=== PATIENT | female | born 1970 | race Caucasian/White ===

== ENCOUNTER 2016-10-22 13:14 | Inpatient (IN) | payer BC ==
[2016-10-22] MEDS ORDERED: NS 0.9% 1000 ML* 1,000 ML IV ONE ×2 (14:58→16:35)
[2016-10-22] MEDS ORDERED: Ketorolac INJ* 30 MG/ML 1 ML VIAL IV ONE (14:58)
[2016-10-22] MEDS ORDERED: Ondansetron INJ* 2 MG/ML VIAL IV ONE ×2 (14:58→18:19)
[2016-10-22 15:29] LABS: Hematocrit 44 % (35-47); Hemoglobin 15.2 g/dl (12.0-16.0); Mean Corpuscular HGB Conc 34 g/dl (31-36); Mean Corpuscular Hemoglobin 30 pg (27-31); Mean Corpuscular Volume 87 fL (80-97); Mean Platelet Volume 9 um3 (7.4-10.4); Red Blood Count 5.12 10^6/ul (4.0-5.4); Red Cell Distribution Width 12 % (10.5-15); White Blood Count 7.8 10^3/ul (3.5-10.8)
[2016-10-22 16:00] LABS: ALT 22 U/L (7-52); AST 18 U/L (13-39); Albumin 4.4 g/dL (3.2-5.2); Alkaline Phosphatase 51 U/L (34-104); Amylase 29 U/L (29-103); Anion Gap 11 mmol/L (2-11); BUN/Creatinine Ratio 14.1 (8-20); Blood Urea Nitrogen 11 mg/dL (6-24); C Reactive Protein < 1.00 mg/L (< 5.00); CO2 Carbon Dioxide 26 mmol/L (22-32); Calcium 9.8 mg/dL (8.6-10.3); Chloride 103 mmol/L (101-111); EGFR African American 101.4 (>60); EGFR Non-African American 78.8 (>60); Globulin 2.8 g/dL (2-4); Glucose 104 mg/dL (70-100); Lipase 17 U/L (11.0-82.0); Potassium 3.5 mmol/L (3.5-5.0); Sodium 140 mmol/L (133-145); Total Protein 7.2 g/dL (6.4-8.9)
[2016-10-22] MEDS ORDERED: HYDROmorphone* 1 MG/ML 1 ML CARPUJECT IV SLOW PU ONE ×2 (17:56→21:42)
--- NOTE | 2016-10-22 18:40 | ED ---
Abdominal Pain/Female - HPI Summary HPI Summary: In the middle of a bout of cyclic vomiting---has usual mid abd pain, has been well managed with Nortriptylline aqnd when sx seem to been earlier this week she increased her nortrip. - History of Current Complaint Chief Complaint: EDAbdPain Stated Complaint: VOMITING/ABD PAIN Time Seen by Provider: 10/22/16 14:49 Hx Obtained From: Patient Hx Last Menstrual Period: 1 week ago ?: No Onset/Duration: Gradual Onset, Lasting Days, Worse Since - past 2 days, Other - Chronic abdomen pain with patient reported "Cyclic vomiting syndrome" Timing: Constant Severity Initially: Moderate Severity Currently: Moderate Pain Intensity: 4 Pain Scale Used: 0-10 Numeric Location: Other - mid upper abdomen Radiates: No Aggravating Factor(s): Nothing Alleviating Factor(s): Nothing Associated Signs and Symptoms: Positive: Decreased Appetite, Nausea, Vomiting Allergies/Adverse Reactions: Allergies Allergy/AdvReac Type Severity Reaction Status Date / Time No Known Allergies Allergy Verified 04/29/15 17:45 Home Medications: Home Medications Bisoprolol TAB* [Zebeta TAB*] 5 mg PO DAILY 10/22/16 [History Confirmed 10/22/16 ] Levothyroxine TAB* [Synthroid TAB*] 150 mcg PO 0800 10/22/16 [History Confirmed 10/22/16] Nortriptyline CAP* [Pamelor CAP*] 20 mg PO BEDTIME 10/22/16 [History Confirmed 10/22/16] Pantoprazole TAB (NF) [Protonix TAB (NF)] 40 mg PO DAILY 10/22/16 [History Confirmed 10/22/16] Simvastatin TAB(NF) [Zocor(NF)] 40 mg PO 1700 10/22/16 [History Confirmed ] Triamterene/HCTZ 37.5-25 MG* [Dyazide CAP*] 1 cap PO DAILY 10/22/16 [History Confirmed 10/22/16] PMH/Surg Hx/FS Hx/Imm Hx Previously Healthy: No Endocrine/Hematology History: Reports: Hx Thyroid Disease Cardiovascular History: Reports: Hx Hypercholesterolemia, Hx Hypertension GI History: Reports: Hx Gastroesophageal Reflux Disease, Other GI Disorders - "cyclic vomiting" - Cancer History Hx Hematologic Symptoms: No Hx Chemotherapy: No Hx Radiation Therapy: No Hx Palliative Cancer Treatment: No - Surgical History Hx Anesthesia Reactions: No - Immunization History Hx Pertussis Vaccination: No Immunizations Up to Date: No Infectious Disease History: No Infectious Disease History: Denies: Traveled Outside the [place] in Last 30 Days - Family History Known Family History: Positive: None - Social History Occupation: Employed Full-time Lives: With Family Alcohol Use: Occasionally Alcohol Amount: socially Hx Substance Use: No Substance Use Type: Reports: None Smoking Status (MU): Never Smoked Tobacco Review of Systems Constitutional: Negative Eyes: Negative ENT: Negative Cardiovascular: Negative Respiratory: Negative Gastrointestinal: Other Positive: Abdominal Pain, Vomiting, Nausea Genitourinary: Negative Musculoskeletal: Negative Skin: Negative Neurological: Negative Psychological: Normal All Other Systems Reviewed And Are Negative: Yes Physical Exam Triage Information Reviewed: Yes Vital Signs On Initial Exam: Initial Vitals Temp Pulse Resp BP Pulse Ox 96.6 F 70 18 121/68 99 10/22/16 13:47 10/22/16 13:47 10/22/16 13:47 10/22/16 13:47 10/22/16 13:47 Vital Signs Reviewed: Yes Appearance: Positive: Ill-Appearing, Pain Distress, Obese Skin: Positive: Warm, Skin Color Reflects Adequate Perfusion, Dry Head/Face: Positive: Normal Head/Face Inspection Eyes: Positive: Normal, EOMI, KOBE ENT: Positive: Normal ENT inspection, Hearing grossly normal. Negative: Nasal congestion, Nasal drainage, Tonsillar swelling, Tonsillar exudate, Trismus, Muffled/hoarse voice, Dental tenderness Neck: Positive: Supple, Nontender Respiratory/Lung Sounds: Positive: Clear to Auscultation, Breath Sounds Present , Decreased Breath Sounds Cardiovascular: Positive: Normal, RRR, Pulses are Symmetrical in both Upper and Lower Extremities Abdomen Description: Positive: No Organomegaly, Soft, Other: - mid upper abdomen pain Bowel Sounds: Positive: Present Musculoskeletal: Positive: Normal, Strength/ROM Intact Neurological: Positive: Normal, Sensory/Motor Intact, Alert, Oriented to Person Place, Time Psychiatric: Positive: Normal, Affect/Mood Appropriate AVPU Assessment: Alert - Sheri Coma Scale Best Eye Response: 4 - Spontaneous Best Motor Response: 6 - Obeys Commands Best Verbal Response: 5 - Oriented Coma Scale Total: 15 Diagnostics - Vital Signs Vital Signs Temp Pulse Resp BP Pulse Ox 10/22/16 18:10 16 10/22/16 17:03 69 15 108/60 98 10/22/16 17:00 71 18 98 10/22/16 16:30 66 13 115/54 100 10/22/16 16:00 70 19 112/52 99 10/22/16 15:49 98.7 F 72 14 100/48 98 10/22/16 15:30 77 18 100/68 100 10/22/16 15:26 69 95 10/22/16 15:23 104/83 10/22/16 13:47 96.6 F 70 18 121/68 99 - Laboratory Lab Results: Lab Results 10/22/16 10/22/16 10/22/16 Range/Units 15:15 15:15 15:15 WBC 7.8 (3.5-10.8) 10^3/ul RBC 5.12 (4.0-5.4) 10^6/ul Hgb 15.2 (12.0-16.0) g/dl Hct 44 (35-47) % MCV 87 (80-97) fL MCH 30 (27-31) pg MCHC 34 (31-36) g/dl RDW 12 (10.5-15) % Plt Count 301 (150-450) 10^3/ul MPV 9 (7.4-10.4) um3 Neut % (Auto) 70.1 (38-83) % Lymph % (Auto) 16.4 L (25-47) % [place] % (Auto) 8.3 (1-9) % Eos % (Auto) 4.0 (0-6) % Baso % (Auto) 1.2 (0-2) % Absolute Neuts (auto) 5.4 (1.5-7.7) 10^3/ul Absolute Lymphs (auto) 1.3 (1.0-4.8) 10^3/ul Absolute Monos (auto) 0.6 (0-0.8) 10^3/ul Absolute Eos (auto) 0.3 (0-0.6) 10^3/ul Absolute Basos (auto) 0.1 (0-0.2) 10^3/ul Absolute Nucleated RBC 0 10^3/ul Nucleated RBC % 0.1 Sodium 140 (133-145) mmol/L Potassium 3.5 (3.5-5.0) mmol/L Chloride 103 (101-111) mmol/L Carbon Dioxide 26 (22-32) mmol/L Anion Gap 11 (2-11) mmol/L BUN 11 (6-24) mg/dL Creatinine 0.78 (0.51-0.95) mg/dL Est GFR ( Amer) 101.4 (>60) Est GFR (Non-Af Amer) 78.8 (>60) BUN/Creatinine Ratio 14.1 (8-20) Glucose 104 H (70-100) mg/dL Lactic Acid 1.2 (0.5-2.0) mmol/L Calcium 9.8 (8.6-10.3) mg/dL Total Bilirubin 0.60 (0.2-1.0) mg/dL AST 18 (13-39) U/L ALT 22 (7-52) U/L Alkaline Phosphatase 51 (34-104) U/L C-Reactive Protein < 1.00 (< 5.00) mg/L Total Protein 7.2 (6.4-8.9) g/dL Albumin 4.4 (3.2-5.2) g/dL Globulin 2.8 (2-4) g/dL Albumin/Globulin Ratio 1.6 (1-3) Amylase 29 (29-103) U/L Lipase 17 (11.0-82.0) U/L Beta HCG, Quant 0.72 mIU/mL Result Diagrams: 10/22/16 15:15 10/22/16 15:15 Lab Statement: Any lab studies that have been ordered have been reviewed, and results considered in the medical decision making process. - CT No standard instances CT Interpretation: Positive (See Comments) - cystic lesion jejunum CT Interpretation Completed By: Radiologist Re-Evaluation - Re-Evaluation First Eval Change: Unchanged - 3 doses of pain med and antiemetic with minimal relief of abd pain--nausea and heeves continues Abdominal Pain Fem Course/Dx - Course Course Of Treatment: Continue NPO, Admit to hospital - Diagnoses Differential Diagnosis: Positive: Bowel Obstruction, Diverticulitis, Irritable Bowel Syndrome, Other - cystic lesion small intestine Provider Diagnoses: Intractable nausea and vomiting Is Visit Related: No Discharge - Discharge Plan Condition: Fair Disposition: ADMITTED TO [facility]
[2016-10-22] MEDS ORDERED: Iohexol 300* (CONTRAST) 10 ML SDV IV ONE (20:00)
[2016-10-22 20:08] LABS: Urine Bacteria Absent (Absent); Urine Bilirubin Negative (Negative); Urine Glucose Negative (Negative); Urine Nitrite Negative (Negative)
--- NOTE | 2016-10-22 20:52 | RAD ---
INDICATION: Abdominal pain COMPARISON: None TECHNIQUE: Axial source images were obtained from the hemidiaphragms to the symphysis pubis following administration of oral and intravenous contrast. 139 mL Omnipaque 300 was utilized. Coronal and sagittal reconstructed images were acquired. Lung bases: The lung bases are clear. Liver: The liver is normal in size. There are no masses. There is no ductal dilatation. Gallbladder: Cholecystectomy. Spleen: The spleen is normal in size. There are no masses. Pancreas: There is no focal pancreatic mass or ductal dilatation. Adrenal glands: There is no evidence of adrenal mass. Kidneys: The kidneys are normal in size and position. There are prompt nephrograms and there is prompt excretion bilaterally. There are no renal parenchymal masses. There is no evidence of nephrolithiasis. Adenopathy: There is no evidence of adenopathy by size criteria. Fluid collections: There are no free or localized fluid collections. Vessels:There are no significant atherosclerotic changes involving the aorta. There is no focal aneurysm. The iliac vessels are normal in caliber. The IVC appears normal. GI tract: The GE junction is patulous. The stomach is unremarkable. On axial reference image 34/106 is a 3, significantly enhancing cystic lesion appearing to arise from the jejunum. This represents a nonspecific finding. Differential considerations would include but not be limited to duplication cysts, cystic degeneration of solid gastrointestinal tumors, gastric intestinal stromal tumors (GIST), or lymphangiomas. The remainder the the small bowel is unremarkable. The colon appears normal. The appendix is visualized and is normal. Pelvic organs: The uterus and adnexa appear normal. There are multiple small ovarian cysts Bladder: There are no bladder masses. Abdominal and pelvic soft tissues: The extraperitoneal abdominal and pelvic soft tissues appear normal.. Osseous structures: There are no acute osseous findings. Other: None IMPRESSION: NONSPECIFIC CYSTIC LESION OF THE SMALL BOWEL (SEE ABOVE). THIS MAY REPRESENT AN INCIDENTAL FINDING OR MAY ACCOUNT FOR THE PATIENT'S SYMPTOMS.
[2016-10-22] MEDS ORDERED: PROCHLORPERAZINE INJ 5 MG/ML 2 ML VIAL IV ONE (21:38)
[2016-10-22] MEDS ORDERED: NS 0.9% 1000 ML* 1,000 ML IV SCH ×2 (21:45→22:15)
[2016-10-22] MEDS ORDERED: Ondansetron INJ* 2 MG/ML VIAL IV PRN (22:12)
[2016-10-22] MEDS ORDERED: PROCHLORPERAZINE INJ 5 MG/ML 2 ML VIAL IV PRN (22:12)
[2016-10-22] MEDS ORDERED: Acetaminophen TAB* 325 MG PO PRN (22:13)
[2016-10-22] MEDS ORDERED: Morphine INJ* 4 MG/ML 1 ML CARPUJECT IV PRN (22:37)
[2016-10-22] MEDS ORDERED: oxyCODONE/Acetamin 5/325 MG* TAB PO PRN ×2 (22:37)
[2016-10-22] MEDS ORDERED: LORazepam INJ* 2 MG/ML 1 ML VIAL IV PUSH PRN (22:38)
[2016-10-22] MEDS ORDERED: Nortriptyline CAP* 10 MG PO SCH (23:00)
[2016-10-22] MEDS ORDERED: Heparin VIAL(*) 5000 UNITS/ML VIAL (FIVE THOUSAND) SUBCUT SCH (23:00)
[2016-10-23] MEDS ORDERED: Heparin DRIP 25,000 UNITS(*) 25,000 UNITS/500 ML BAG IV SCH (01:30)
--- NOTE | 2016-10-23 01:36 | PN ---
Progress Note - Progress Note Date of Service: 10/23/16 Note: [facility] Nursing notified of irregular HR in the high 60s/low 70s. Asymptomatic. No HX AFIB. ECG confirms rate controlled AFIB. Upon arrival, Mrs Ta is a 46YO female admitted for abdominal pain & intractable N/V and finding of cystic small bowel lesion, is asymptomatic and confirms a negative HX for AFIB. Denies chest pain, SOB, palpitations, weakness , light-headedness, & change in speech. lungs: clear, unlabored CV: IR/IR, normal S1S2 abd: SNTND ext: W&D ECG: rate controlled AFIB assessment: plan new onset rate controlled AFIB : has received heparin SQ for DVTp : start no initial bolus heparin GTT : continue bisoprolol : consider cardiology consult in AM, if not spontaneously converted : supplemental oxygen : [id number] of 2 indicates benefit from long-term anticoagulation : supportive care
--- NOTE | 2016-10-23 01:49 | HP ---
CC: Dr. Maria * HISTORY AND PHYSICAL: DATE OF ADMISSION: 10/22/16 PROVIDER: Stevo Munson NP ATTENDING PHYSICIAN: Dr. Anshul Aguila *(as dictated by Stevo Munson NP) CONSULTING PHYSICIAN: Dr. Robin Leal, Surgery. PRIMARY CARE PROVIDER: Elodia Maria MD CHIEF COMPLAINT: Abdominal pain and intractable nausea and vomiting. HISTORY OF PRESENT ILLNESS: This is a 46-year-old female with a past medical history significant for cyclic vomiting syndrome who presents today with persistent vomiting and abdominal pain. The patient is a very good historian. She reports that this has been a recurring issue for her for quite a few years. At one point, she states that it was thought to be her gallbladder. She had a gallbladder out in May 2014. After gallbladder removal, the patient states that her symptoms got somewhat better, then they worsened again. She says that she has had endoscopies, CAT scans, HIDA scans, ultrasounds with no significant findings to explain her symptoms. Most recently in February or March of this year, her primary care provider saw her after another particularly bad episode and diagnosed her with what was thought to be cyclic vomiting syndrome. She was started on nortriptyline and she states that she has done well with this and has had less flare-ups since that time. Last , the patient states that she started having some nausea and vomiting, which improved Wednesday and then progressively improved over the course of the weekend. She noted only mild nausea, but she was able to tolerate this; however, her symptoms worsened again on Wednesday and she has missed multiple days of work this week secondary to nausea and vomiting. She notes that she is the most nauseous and vomits every morning and then starts to feel a little bit better. She notes that by mid and late afternoon, she feels pretty good and then she wakes up the next morning and feels sick again. By this morning, on morning, she states that she woke up and felt really well today, was hoping to go to work. She ate some eggs this morning and then had severe vomiting episode, followed by abdominal pain. The pain began to worsen around noon and she came into the ER for further evaluation and management. She can identify no aggravating factors, but notes this cyclic pattern of nausea, vomiting every morning. She has been treating her symptoms with nortriptyline increased her dose to 30 and 40 mg. She also takes p.r.n. Zofran as needed. She reports associated decreased p.o. intake as well as low-grade fevers. She denies any chest pain, trouble breathing. She denies any diarrhea, although she does state that she has some lose stools last week. She denies any dysuria, hematuria, or other flu-like symptoms. Here in the ER, the patient's lab work is mostly unremarkable. A CT of the abdomen and pelvis was done with contrast. The CT notes a significantly enhancing cystic lesion that appears to arise from the jejunum. This represents a nonspecific finding. It may also represent duplication cyst, cystic degeneration of solid gastrointestinal tumors, gastric intestinal stromal tumors, or lymphangiomas. Surgery was consulted in the ED by the provider and they agreed to follow with the patient tomorrow as a consult. PAST MEDICAL HISTORY: 1. Cyclic vomiting syndrome. 2. Hypothyroidism. 3. Hypertension. 4. Hyperlipidemia. 5. GERD. 6. 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 HOME MEDICATIONS: 1. Levothyroxine 150 mcg daily. 2. Nortriptyline 20 mg q.h.s. 3. Pantoprazole 40 mg daily. 4. Bisoprolol 5 mg daily. 5. Simvastatin 20 mg daily. 6. Triamterene - hydrochlorothiazide 37.5 - 25 one tab daily. ALLERGIES: No known drug allergies. FAMILY HISTORY: She reports her mother has had a history of CVA. Father had history of heart surgery as well as myasthenia gravis and thrombocytopenia. He also carries a history of prostate cancer. SOCIAL HISTORY: The patient denies any smoking history. She reports occasional social drinking. She denies any history of illicit drug use including marijuana use. 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 She is . Her father, Theodore Briseno, is her surrogate decision maker. Her secondary surrogate decision maker is her daughter, Fifi Ta, who lives in [place], [place]. REVIEW OF SYSTEMS: A 14-point review of systems was completed. All pertinent positives and negatives are included in the HPI. PHYSICAL EXAMINATION GENERAL: This is a well-developed, well-nourished female patient, who is lying in the ED stretcher. She appears fatigued, but no apparent distress. VITAL SIGNS: Temperature 98.7, heart rate 72, respiratory rate 18, blood pressure 100/52, and O2 saturation is 97% on room air. Pain is rated at a 4/10. HEENT: Head is atraumatic, normocephalic. Face is symmetrical. Pupils are equal, round, and reactive to light. Extraocular movements are intact. Sclerae anicteric. Oral mucosa appears somewhat dry. There was no oropharyngeal exudate or erythema. NECK: Supple. No lymphadenopathy appreciated. No JVD noted. LUNGS: Clear to auscultation bilaterally. CARDIAC: S1, S2 heart sounds. Regular rate and rhythm. No murmurs, rubs, or gallops. There is trace peripheral edema. The patient has 2+ distal pulses. They are symmetric and equal. ABDOMEN: Soft. There is tenderness with palpation to the left upper quadrant and left lower quadrant. Bowel sounds are present times all 4 quadrants. No hepatosplenomegaly is noted. MUSCULOSKELETAL: No clubbing or cyanosis. The patient has full range of motion. SKIN: Limited assessment, but appears warm and dry. NEURO: Cranial nerves II through XII are grossly intact. The patient moves all extremities. Sensation is intact to light touch in the lower extremities. PSYCH: She is alert and oriented x3. Affect is appropriate. LABORATORY DATA AND DIAGNOSTIC STUDIES: CBC: WBC 7.8, hemoglobin 15.2, hematocrit 44, platelet count 301. CMP: Sodium 140, potassium 3.5, chloride 103, carbon dioxide 26, BUN 11, creatinine 0.78, glucose 104, lactic acid 1.2, calcium 9.8, total bilirubin 0.6, AST 18, ALT 22, alk phos 51, CRP less than 1, albumin 4.4, amylase 29, lipase 17, beta hCG negative. Urinalysis shows trace ketones. No bacteria. 3+ leukocyte esterase. CT of the abdomen and pelvis as per above. There are no old medical records for review. ASSESSMENT AND PLAN: This is a 46-year-old female who presents today with concern for intractable nausea, vomiting, and abdominal pain and has an incidental finding of cystic lesion on her CT of the abdomen and pelvis. She will be admitted for further evaluation and management as well as a surgical consult. Plan is as follows. 1. Intractable nausea and vomiting. Continue with supportive care and p.r.n. antiemetics. The patient reports that she has improvement in her nausea symptoms at this time. We will continue with p.r.n. Zofran and Compazine. I have also added on p.r.n. lorazepam if needed. We will resume the patient's nortriptyline and maintain her on clear liquid diet. 2. Abdominal pain. I suspect this may be secondary to the patient's nausea and vomiting. The patient reports some improvement with the pain following pain medications, but this also exacerbated her nausea and vomiting. I will switch her to morphine and also offer Percocet if she needs it. At this time, she is declining any further pain medications, but is aware of p.r.n. medications available to her. The patient does have a cystic lesion on her CT scan and we appreciate surgical input that will happen tomorrow. Additionally, I have requested records from her PCP and Dr. Castaneda with [facility]. We will repeat labs tomorrow and I have ordered a repeat CRP in the event the patient has a new infectious etiology forming and may have not yet been captured on the CT scan. 3. Hypothyroidism. Continue home levothyroxine. 4. History of reflux. Continue pantoprazole. 5. History of hyperlipidemia. Hold simvastatin while the patient is not taking p.o. Resume once taking p.o. 6. Hypertension. The patient is currently somewhat hypotensive most likely secondary to hypovolemia as well as pain medications. I will hold her bisoprolol and thiazide. We do not want to further dehydrate the patient when she is taking in little p.o. and with active vomiting. 7. FEN. The patient is ordered clear liquids and maintenance IV fluids. 8. DVT prophylaxis. The patient is ordered subcu heparin. 9. Code status. The patient is a full code. TIME SPENT: Time spent on this admission was approximately 60 minutes, more than half the time was spent [id number] with the patient obtaining history and physical, performing the physical examination, and reviewing the plan of care. Plan of care was also reviewed with my attending, Dr. Aguila, who is in agreement. STEVO MUNSON, PAYAM [id number]/[facility] #: [id number] BONITA
[2016-10-23] MEDS ORDERED: Heparin VIAL(*) 5000 UNITS/ML VIAL (FIVE THOUSAND) IV SCH ×2 (02:00→03:00)
[2016-10-23 02:30] LABS: Hematocrit 40 % (35-47); Hemoglobin 13.5 g/dl (12.0-16.0); Mean Corpuscular HGB Conc 33 g/dl (31-36); Mean Corpuscular Hemoglobin 29 pg (27-31); Mean Corpuscular Volume 88 fL (80-97); Mean Platelet Volume 9 um3 (7.4-10.4); Red Cell Distribution Width 13 % (10.5-15)
[2016-10-23] MEDS ORDERED: Heparin DRIP 25,000 UNITS(*) 25,000 UNITS/500 ML BAG IVPB SCH (02:30)
[2016-10-23] MEDS ORDERED: Levothyroxine TAB* 150 MCG TAB PO SCH (06:00)
[2016-10-23] MEDS ORDERED: Pantoprazole IV* 40 MG IV SCH (09:00)
[2016-10-23 09:38] VITALS: BP 102/63
[2016-10-23] MEDS ORDERED: Bisoprolol TAB* 5 MG PO SCH (10:00)
[2016-10-23 10:06] LABS: Hematocrit 40 % (35-47); Hemoglobin 13.6 g/dl (12.0-16.0); Mean Corpuscular HGB Conc 34 g/dl (31-36); Mean Corpuscular Hemoglobin 30 pg (27-31); Mean Corpuscular Volume 88 fL (80-97); Mean Platelet Volume 9 um3 (7.4-10.4); Red Blood Count 4.59 10^6/ul (4.0-5.4); Red Cell Distribution Width 13 % (10.5-15)
[2016-10-23 10:08] LABS: Comments Flag Yes
[2016-10-23 10:09] LABS: Add Diff/Slide Review? Slide Review Added
--- NOTE | 2016-10-23 11:14 | CONSULT ---
Consult Consult: Surgical consult dictated: Imp/Plan: Cyclic vomiting syndrome. Intermittent epigastric abdominal pain associated with vomiting. New onset episode of A-fib last night, will undergo an echocardiogram today Feels a lot better this AM Abdominal exam essentially unremarkable Incidental cystic lesion at jejunum on CT yesterday Await records from [facility]
[2016-10-23 11:25] LABS: Blood Urea Nitrogen 8 mg/dL (6-24); C Reactive Protein < 1.00 mg/L (< 5.00); CO2 Carbon Dioxide 18 mmol/L (22-32); Calcium 8.4 mg/dL (8.6-10.3); Chloride 108 mmol/L (101-111); EGFR African American 109.4 (>60); EGFR Non-African American 85.1 (>60); Glucose 111 mg/dL (70-100); Sodium 137 mmol/L (133-145)
[2016-10-23 11:35] LABS: Anion Gap 11 mmol/L (2-11)
[2016-10-23] MEDS ORDERED: Perflutren Lipid Microsphere* 3 ML VIAL ONE (12:21)
--- NOTE | 2016-10-23 13:32 | ECHO ---
Patient: UMM VELEZ [facility] Rec#: [id number] : 1970 Date: 10/23/2016 Age: 46y Height: 157.5 cm / 62.0 in Weight: 109.3 kg / 240.9 lbs Sex: F BSA: 2.1 Room#: [facility] Admit Date#: 10/22/2016 Type: Inpatient Referring: MELVIN BRIGGS MD Reading: Berry Durbin MD Applications Tester: Eliane Watts RN RDCS CC: Elodia Maria MD Transthoracic Echocardiogram Indication: Atrial fibrillation BP: 102/63 HR: 69 Rhythm: NSR Findings History: Cyclic vomiting syndrome, hypothyroidism, HLD, GERD Technical Comments: The study is technically limited due to poor apical windows. The study is technically limited due to patient body habitus. Completed at 1315. Left Ventricle: The left ventricular chamber size is normal. Mild concentric left ventricular hypertrophy is observed. Global left ventricular wall motion and contractility are within normal limits. There is normal left ventricular systolic function. The estimated ejection fraction is 55-60%. There is no consistent Doppler evidence of clinically significant diastolic dysfunction. Left Atrium: The left atrial chamber size is normal. Right Ventricle: The right ventricular cavity size is normal. The right ventricular global systolic function is low normal. Right Atrium: The right atrium is mildly dilated. Aortic Valve: The aortic valve is trileaflet. The aortic valve leaflets are mildly thickened. There is no evidence of aortic regurgitation. There is no evidence of aortic stenosis. Mitral Valve: The mitral valve leaflets are mildly thickened. There is mild mitral regurgitation. There is no evidence of mitral stenosis. Tricuspid Valve: The tricuspid valve leaflets are normal. There is trace to mild tricuspid regurgitation. Unable to estimate the right ventricular systolic pressure. Pulmonic Valve: The pulmonic valve appears normal. There is a trace pulmonic regurgitation. There is no pulmonic stenosis. Pericardium: There is no significant pericardial effusion. A pericardial fat pad is visualized. Aorta: There is no dilatation of the ascending aorta. There is no dilatation of the aortic arch. There is no dilation of the aortic root. Pulmonary Artery: The main pulmonary artery appears normal. Venous: The inferior vena cava appears normal in size. There is a greater than 50% respiratory change in the inferior vena cava dimension. Contrast: Definity was used to optimize study. A total of 5 ml of Definity was administered IV. Summary: There was not any prior study for comparison. Conclusions The study is technically suboptimal due to patient body habitus. Mild concentric left ventricular hypertrophy is observed. The estimated ejection fraction is 55-60%. The right ventricular global systolic function is low normal. The right atrium is mildly dilated. There is mild mitral regurgitation. There is trace to mild tricuspid regurgitation. Measurements Name Value Normal Range RVIDd (AP) 2D 3.1 cm (0.9 - 2.6) RVDdMajor (2D) 3.8 cm (2.2 - 4.4) RAd ISD 4CH 5.1 cm (3.4 - 4.9) RA (A4C)W 4 cm (2.9 - 4.6) IVSd (2D) 1.1 cm (0.6 - 1) LVPWd (2D) 1.1 cm (0.6 - 1) LVIDd (2D) 5 cm (3.6 - 5.4) LVIDs (2D) 3.5 cm - LV FS (2D) 30 % (25 - 45) Aortic Annulus 1.7 cm (1.4 - 2.6) Ao root diameter (2D) 2.8 cm (2.1 - 3.5) Ascending Ao 2.8 cm (2.1 - 3.4) Aortic arch 2.2 cm (1.8 - 3.4) LA dimension (AP) 2D 4 cm (2.3 - 3.8) LAd ISD 4CH 5.1 cm (2.9 - 5.3) LA ISD 4CH W 3.8 cm (2.5 - 4.5) Name Value Normal Range LA ESV SP 4CH (A/L) 51.3 ml - LA ESV SP 2CH (A/L) 42.9 ml - LA ESV BP (A/L) 52 ml - LA ESV BP (A/L) index 25.1 ml/m2 - LA ESV SP 4CH (MOD) 48 ml - LA ESV SP 2CH (MOD) 40.3 ml - Name Value Normal Range MV E-wave Vmax 0.82 m/sec - MV deceleration time 213 msec - MV A-wave Vmax 0.68 m/sec - MV E:A ratio 1.2 ratio - LV septal e' Vmax 0.06 m/sec - LV lateral e' Vmax 0.1 m/sec - LV E:e' septal ratio 13.7 ratio - LV E:e' lateral ratio 8.2 ratio - Name Value Normal Range AV Vmax 1.6 m/sec - AV VTI 33.2 cm - AV peak gradient 10 mmHg - AV mean gradient 5.6 mmHg - LVOT Vmax 1.1 m/sec - LVOT VTI 24.2 cm - LVOT peak gradient 5 mmHg - LVOT mean gradient 3.3 mmHg - KADEN Vmax 0.91 m/sec - Name Value Normal Range IVC diameter 1.6 cm - Name Value Normal Range PV Vmax 0.88 m/sec -
[2016-10-23 14:00] LABS: TSH (Thyroid Stimulating Horm) 1.76 mcIU/mL (0.34-5.60)
--- NOTE | 2016-10-23 15:26 | DCNOTE ---
Patient seen this morning and again in the afternoon. Symptoms have largely resolved. She tolerated solid foods for lunch and reported some mild nausea but nothing significant. Does think she may have some urinary symptoms that have been ongoing. AFib seems to have resolved with minutes as she has been in NSR since arriving on [facility]. Heparin stopped, will hold on chronic AC for now and she will follow-up with PCP regarding further evaluation for this as well as the cystic lesion. Will continue Bisoprolol and will rx for UTI with Keflex.
--- NOTE | 2016-10-23 23:34 | CONS ---
CC: Dr. Candi Castaneda, [facility] * CONSULTATION REPORT: DATE OF CONSULT: 10/23/16 PATIENT OF: Kevin Case MD REFERRED TO: Jasmyn Delong MD (DICTATED BY MOISES BROWNING) REASON FOR CONSULT: Abdominal pain. HISTORY OF PRESENT ILLNESS: Ms. Ta is a pleasant 46-year-old female who was admitted under the hospitalist services from the emergency room with complaints of worsening abdominal pain and associated nausea and vomiting. The patient apparently has a past medical history significant for cyclic vomiting syndrome, who experienced persistent vomiting and abdominal pain prior to her admission. 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 At one point, she states that her pain and vomiting was related to gallbladder disease and she went on and had her gallbladder removed back in May 2014. She experienced brief improvement after that; however, her symptoms got somehow worse again. She had multiple workups in the remote past including several endoscopies, CT scan, HIDA scans, ultrasounds with no significant findings to explain her symptoms of nausea and vomiting. Most recently in February or March of this year, her primary care physician saw her after another bad cycle of nausea and vomiting and diagnosed her with such a syndrome and was started on nortriptyline in addition to Zofran as needed for nausea and flare-ups. She reports that her pain and nausea have gotten progressively worse over the past 24 hours prior to her admission, for which she presented to our emergency room and was evaluated. She also had a CT scan of the abdomen and pelvis that showed a cystic lesion at the mid jejunum, for which we were asked to see the patient for surgical evaluation and to discuss her CT findings. This morning, I was at the patient's bedside for consultation. She reports significant improvement of her pain, nausea, and vomiting overnight. She has been taking Dilaudid that seemed to increase her nausea initially and that was switched to morphine and Toradol with good improvement. She has also been taking Zofran and Compazine alternatively and seemed to work better for her. She denies any changes in her bowel habits during these cyclic vomiting episodes. There was also no fever, chills, night sweats, or recent weight loss. 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 PAST SURGICAL HISTORY: Significant for a . MEDICATIONS: Home medications includin. Levothyroxine 150 mcg daily. 2. Nortriptyline 20 mg q.h.s. 3. Pantoprazole 40 mg daily. 4. Bisoprolol 5 mg daily. 5. Simvastatin 20 mg daily. 6. Triamterene/hydrochlorothiazide 37.5/25 one tab daily. ALLERGIES: She has no known drug allergies. FAMILY HISTORY: Noncontributory. SOCIAL HISTORY: The patient is a nonsmoker, who reports occasional social drinking, and no history of illicit drug use. 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 She is and her father is her surrogate decision maker. REVIEW OF SYSTEMS: See HPI, otherwise negative. PHYSICAL EXAM: General: She is a pleasant, well-developed and well-nourished, mildly obese female, in no acute distress or discomfort at the time of consultation. Vitals reveal a temperature of 98.7, heart rate of 80, respirations of 18, blood pressure of 110/52, and O2 sat of 97% on room air. HEENT: Sclerae anicteric. PERRLA. EOMs intact. Oropharynx is pink and moist. Neck: Supple. Trachea midline. No cervical adenopathy, or thyromegaly. Lungs: Clear to auscultation bilaterally. Heart: Regular rate and rhythm. Normal S1 and S2 without rubs, murmurs, or gallops. Back: With normal curvature. No CVA tenderness. Breast exam deferred at this time. Abdomen: Soft, nontender, and nondistended. Special attention was given to the epigastric area where the patient explained the episode of her pain associated with vomiting, but no tenderness was appreciated. There is no rebound tenderness, guarding, or rigidity, and there are no hernias or masses noted. Extremities: Without cyanosis, clubbing, or edema. Neurologic: Grossly intact. Rectal Exam: Deferred at this time. ACCESSORY DIAGNOSTIC DATA: The patient had a CT scan as mentioned above that showed findings consistent with a cystic lesion along the small bowel, but there was no evidence of any solitary mass or lymphadenopathy within the abdomen. IMPRESSION: A 46-year-old female with a past medical history of cyclic vomiting syndrome, who experienced intermittent epigastric pain associated with her nausea and vomiting with incidental finding of a cystic lesion along the jejunum of her small bowel. PLAN: I went on and discussed with the patient the findings of her CT and physical exam. She appears to be very comfortable this morning with resolution of her nausea, vomiting, and abdominal pain. think that cystic lesion of small bowel was an incidental finding that the patient denied having similar reports in the past CT that she had multiple over the years. She also denied any surgical intervention at this time and I do not think, there is any urgency to do anything surgically as well. As an employee at [employer] [employer], she prefers to do all her surgeries down there since it is practically free with no co-pay if you use other facilities. Again, she appears to be comfortable and shows no sign of acute abdomen or any need for surgical intervention. She has been on clear liquid diet that we will advance and if she continued to improve today, she will likely be okay to go home and follow up with her GI doctor at [facility] sometime early next week. The case was discussed with Dr. Delong as well as the referring doctor, Dr. Case, and we will follow her up accordingly. If she wishes to continue her care at [facility], we will be happy to see her in the office for a followup. Otherwise, she can follow up with her primary care physician, and Dr. Candi Castaneda, her GI doctor, at [facility] sometime next week. MOISES BROWNING [id number]/[facility] #: [id number] BONITA
--- NOTE | 2016-10-24 08:01 | DS ---
CC: Dr. Maria * DISCHARGE SUMMARY: DATE OF ADMISSION: 10/22/16 DATE OF DISCHARGE: 10/23/16 PRIMARY CARE PHYSICIAN: Dr. Maria. PRINCIPAL DISCHARGE DIAGNOSIS: Cyclical vomiting syndrome. SECONDARY DIAGNOSES: 1. Atrial fibrillation. 2. Urinary tract infection. 3. Small bowel lesion. DISCHARGE MEDICATION REGIMEN: 1. Keflex 250 mg by mouth 4 times daily. 2. Zofran 4 mg by mouth every 6 hours as needed for nausea. 3. Bisoprolol 5 mg by mouth daily. 4. Synthroid 150 mcg by mouth daily. 5. Nortriptyline 20 mg by mouth at bedtime. 6. Protonix 40 mg by mouth daily. 7. Simvastatin 40 mg by mouth nightly. 8. Dyazide 37.5/25 one capsule by mouth daily. STUDIES DONE DURING HOSPITALIZATION: CT abdomen and pelvis with contrast. Impression: Nonspecific cystic lesion of the small bowel, this may represent incidental finding or may account for the patient's symptoms. Transthoracic echocardiogram: Study is technically suboptimal due to the patient's body habitus, mild concentric LVH is preserved, estimated ejection fraction is 55% to 60%. The right ventricular global systolic function is low normal. The right atrium is mildly dilated. There is mild mitral regurgitation. There is [id number] tricuspid regurgitation. HISTORY OF PRESENT ILLNESS AND HOSPITAL SUMMARY: Please see the full history and physical by Ursula Guerra NP for full detail. Briefly, Ms. Ta is a 46-year-old female with a history significant for cyclical vomiting syndrome, who presented to the hospital with persistent vomiting and abdominal pain. The patient has had extensive workup of this in the past and she has been taking nortriptyline; however, she states she has recently been trying to wean herself off and has decreased her dose and it seems like her symptoms have worsened in the setting of this. On CT scan, the patient was found to have enhancing cystic lesion that appears to arise from the jejunum. It is unclear if this is related to the patient's current symptoms. It seems that on the previous scan from February 2016, this was not noted. The patient was treated conservatively with IV fluids and antiemetics with improvement in her symptoms. Surgery was consulted; however, they did not feel any surgical intervention was needed at this time. Of note, the patient was found to have an irregular heart rate on the surgical stay unit. An EKG was done that showed atrial fibrillation. This prompted to transfer to the telemetry unit and by the time she got there and was placed on telemetry, she was back in normal sinus rhythm. She was started briefly on a heparin drip and her home bisoprolol was continued. 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 She did report some ongoing urinary symptoms and a UA was positive and urine culture grew group B strep. The patient was discharged on a 3-day course of Keflex. She was able to tolerate solid foods and will be discharged to follow up with her PCP as an outpatient. TIME SPENT: Total time spent on this discharge was 45 minutes. This is a summary of the hospitalization, please see the full medical record for further details. [id number]/[facility] #: [id number] MTDD
== END 2016-10-23 16:20 | disposition home or self-care (01) | DRG 254 ==
LOC: ED 13:14 → SSU 22:06 → MEDTELE 10-23 02:03
PROVIDERS: ADMIT Hospitalist; ATTEND Hospitalist
DX: K31.89 Other diseases of stomach and duodenum (principal); I95.89 Other hypotension; I48.91 Unspecified atrial fibrillation; N39.0 Urinary tract infection, site not specified; I10 Essential (primary) hypertension; E86.1 Hypovolemia; Z68.41 Body mass index [BMI] 40.0-44.9, adult; R11.2 Nausea with vomiting, unspecified; B95.1 Streptococcus, group B, as the cause of diseases classified elsewhere; K63.9 Disease of intestine, unspecified; E03.9 Hypothyroidism, unspecified; E78.5 Hyperlipidemia, unspecified; K21.9 Gastro-esophageal reflux disease without esophagitis; E66.9 Obesity, unspecified; Z82.49 Family history of ischemic heart disease and other diseases of the circulatory system; Z83.49 Family history of other endocrine, nutritional and metabolic diseases; Z82.3 Family history of stroke; Z79.899 Other long term (current) drug therapy; Z80.42 Family history of malignant neoplasm of prostate
CPT/HCPCS: 36415; 74177; 80048; 80053; 81003; 81015; 82150; 83605; 83690; 84443; 84520; 84702; 85025; 85730; 86140; 87077; 87086; 93005; 93306; A9270-GY; C8929; J0780; J1170; J1644; J1885; J2405; Q9967

== ENCOUNTER 2018-03-22 08:42 | Emergency (ER) | payer BC ==
[2018-03-22] MEDS ORDERED: NS 0.9% 1000 ML** 1,000 ML IV ONE (09:01)
[2018-03-22] MEDS ORDERED: DiMENhydriNATE IV* 50 MG/ML VIAL IV PUSH ONE (09:02)
[2018-03-22] MEDS ORDERED: Haloperidol INJ IV/IM* 5 MG/ML AMP IV SLOW PU ONE (09:02)
[2018-03-22] MEDS ORDERED: Pantoprazole IV* 40 MG IV ONE (09:03)
[2018-03-22] MEDS ORDERED: Famotidine TAB* 20 MG PO ONE (09:03)
--- NOTE | 2018-03-22 09:14 | ED ---
GI/ HPI - HPI Summary HPI Summary: Pt is a 48 y/o female who presents to the ED c/o vomiting. She has diagnosed cyclical vomiting, but is not on any medications for it. Pt has been dry heaving every time she eats for the past 2 weeks, and sometimes vomits bile. She was beginning to feel better last week, but got worse again 3 days ago. Pt went to [place] yesterday and had a CT, which revealed no focal intra-abdominal inflammation, and contractured descending and sigmoid colon. She was only given pain meds and did not have a GI consult. This morning she vomited blood-tinged sputum. Pt also c/o epigastric abdominal pain, migraines, and sore throat, described as feeling raw. She denies any nausea, and states the dry heaving simply feels like contractions. Pt also denies any melena or hematochezia. She was switched from Nortriptyline to Topamax for her migraines last week, but the new medication is not helping. Pt also takes 40 mg Omeprazole and Zofran PRN. PSHx cholecystectomy, . She denies any PMHx of Crohns, colitis, or bowel obstruction, however she notes she has had inflammatory markers in her bloodwork in the past. She denies any marijuana use. - History of Current Complaint Chief Complaint: EDAbdPain Time Seen by Provider: 03/22/18 09:00 Stated Complaint: ABD PAIN Hx Obtained From: Patient Hx From Patient Unobtainable Due To: Altered Mental Status Hx Last Menstrual Period: 1 week ago Onset/Duration: Started Weeks Ago - 2, Still Present Timing: Constant Current Severity: Moderate Pain Intensity: 7 Location of Pain: Epigastric Associated Signs and Symptoms: Positive: Vomiting, Abdominal Pain. Negative: Nausea, Black Tarry Stool, Blood w/Stool, Melena Aggravating Factor(s): Food Alleviating Factor(s): Nothing - Allergy/Home Medications Allergies/Adverse Reactions: Allergies Allergy/AdvReac Type Severity Reaction Status Date / Time No Known Allergies Allergy Verified 03/22/18 08:51 Home Medications: Home Medications Clobetasol Propionate 1 applic TOPICAL BID PRN 03/22/18 [History Confirmed 03/22] Omeprazole 40 mg PO DAILY 03/22/18 [History Confirmed 03/22/18] Ondansetron [Ondansetron Odt] 8 mg SL Q8H PRN 03/22/18 [History Confirmed ] Rosuvastatin Calcium [Crestor] 20 mg PO DAILY 03/22/18 [History Confirmed ] Spironolactone 0.5 - 1 tab PO DAILY 03/22/18 [History Confirmed 03/22/18] Theragran/minerals TAB* 1 tab PO DAILY 03/22/18 [History Confirmed 03/22/18] Topiramate TAB(*) [Topamax 25 MG tab] 1 tab PO BEDTIME 03/22/18 [History Confirmed 03/22/18] PMH/Surg Hx/FS Hx/Imm Hx Endocrine/Hematology History: Reports: Hx Thyroid Disease - hypothyroid Denies: Hx Diabetes Cardiovascular History: Reports: Hx Hypercholesterolemia, Hx Hypertension GI History: Reports: Hx Gastroesophageal Reflux Disease, Other GI Disorders - "cyclic vomiting" Sensory History: Reports: Hx Contacts or Glasses Denies: Hx Hearing Aid Opthamlomology History: Reports: Hx Contacts or Glasses Neurological History: Reports: Hx Migraine - Cancer History Hx Hematologic Symptoms: No Hx Chemotherapy: No Hx Radiation Therapy: No Hx Palliative Cancer Treatment: No - Surgical History Surgery Procedure, Year, and Place: Cholecystectomy. C section. knee arthroscopy Hx Anesthesia Reactions: No Infectious Disease History: No Infectious Disease History: Denies: Traveled Outside the [place] in Last 30 Days - Family History Known Family History: Positive: Other - CVA, thrombocytopenia, myasthenia gravis , [place] - Social History Alcohol Use: Occasionally Alcohol Amount: socially Hx Substance Use: No Substance Use Type: Reports: None Hx Tobacco Use: No Smoking Status (MU): Never Smoked Tobacco Review of Systems Positive: Sore Throat Positive: Abdominal Pain, Vomiting. Negative: Nausea, Other - melena, hematochezia Positive: Headache - migraines All Other Systems Reviewed And Are Negative: Yes Physical Exam - Summary Physical Exam Summary: Appearance: Well appearing, no pain distress Skin: warm, dry, reflects adequate perfusion Head/face: normal Eyes: EOMI, KOBE ENT: mucous membranes moist Neck: supple, non-tender Respiratory: CTA, breath sounds present Cardiovascular: RRR, pulses symmetrical Abdomen: non-tender, soft Bowel Sounds: present Musculoskeletal: normal, strength/ROM intact Neuro: normal, sensory motor intact, A&Ox3 Triage Information Reviewed: Yes Vital Signs On Initial Exam: Initial Vitals Temp Pulse Resp BP Pulse Ox 98.2 F 67 18 139/87 100 03/22/18 08:48 03/22/18 08:48 03/22/18 08:48 03/22/18 08:48 03/22/18 08:48 Vital Signs Reviewed: Yes Diagnostics - Vital Signs Vital Signs Temp Pulse Resp BP Pulse Ox 03/22/18 08:48 98.2 F 67 18 139/87 100 - Laboratory Result Diagrams: 03/22/18 09:23 03/22/18 09:23 Lab Statement: Any lab studies that have been ordered have been reviewed, and results considered in the medical decision making process. - EKG 9:26 Cardiac Rate: NL - 66 bpm EKG Rhythm: Sinus Rhythm ST Segment: Normal Summary of EKG Findings: Nl axis, nl intervals Re-Evaluation - Re-Evaluation First Eval Re-Evaluation Time: 10:14 Change: Improved Comment: Pt feels better now. GIGU Course/Dx - Course Course Of Treatment: Nurse's notes reviewed. Patient with a history of irritable bowel/cyclic vomiting syndrome presents with epigastric discomfort. There was some blood-tinged vomitus this morning. She is otherwise stable now. Her symptoms went away with fluids, Haldol/Dramamine intravenously. Laboratories are stable CT scan from yesterday was reviewed and showed no evidence of acute inflammation. - Diagnoses Differential Diagnoses - Female: Other - Cyclic vomiting, pancreatitis, gastritis, peptic ulcer disease, GI motility issue Provider Diagnoses: IBS (irritable bowel syndrome), Shellie-Pisano tear Discharge - Sign-Out/Discharge Documenting (check all that apply): Patient Departure - Discharge Patient Received Moderate/Deep Sedation with Procedure: No - Discharge Plan Condition: Improved Disposition: HOME Prescriptions: Famotidine TAB* [Pepcid 20 MG TAB*] 20 mg PO BID #10 tab Hyoscyamine Sulfate [Levsin] 0.125 mg PO Q4H PRN #30 tablet PRN Reason: cramping Metoclopramide TAB* [Reglan TAB*] 10 mg PO Q6H #40 tab Sucralfate TAB* [Carafate*] 1 gm PO ACHS #60 tab Patient Education Materials: Irritable Bowel Syndrome (ED), Shellie-Pisano Syndrome (ED) Forms: *Work Release Referrals: Elodia Maria MD [Primary Care Provider] - Jean Cifuentes DO [Doctor of Osteopathy] - Additional Instructions: Call GI today to schedule prompt follow-up. You likely will need endoscopy. Return with dark or maroon-colored stools, vomiting blood, worse, new symptoms or other concerns. - Billing Disposition and Condition Condition: IMPROVED Disposition: Home - Attestation Statements Document Initiated by Pura: Yes Documenting Scribe: Sylvia Brunson Provider For Whom Pura is Documenting (Include Credential): Willy Triana MD Scribe Attestation: Sylvia Meeks, scribed for Willy Triana MD on 03/22/18 at 1147. Scribe Documentation Reviewed: Yes Provider Attestation: The documentation as recorded by the Sylvia tanner accurately reflects the service I personally performed and the decisions made by me, Willy Triana MD Status of Scribe Document: Viewed
[2018-03-22] MEDS ORDERED: Sucralfate TAB* 1 GM PO ONE (09:15)
[2018-03-22 09:29] LABS: ABS Basophils 0.1 10^3/ul (0-0.2); ABS Eosinophils 0.5 10^3/ul (0-0.6); ABS Lymphocytes 1.3 10^3/ul (1.0-4.8); ABS Monocytes 0.5 10^3/ul (0-0.8); ABS Neutrophils 4.1 10^3/ul (1.5-7.7); ABS Nucleated RBC 0 10^3/ul; Eosinophil % 8.2 %; Hematocrit 39 % (35-47); Hemoglobin 13.3 g/dl (12.0-16.0); Lymphocyte % 20.1 %; Mean Corpuscular HGB Conc 34 g/dl (31-36); Mean Corpuscular Hemoglobin 29 pg (27-31); Mean Corpuscular Volume 86 fL (80-97); Mean Platelet Volume 7.8 fL (7.4-10.4); Nucleated Red Blood Cells % 0; Platelet Count 295 10^3/ul (150-450); Red Blood Count 4.56 10^6/ul (4.00-5.40); Red Cell Distribution Width 13 % (10.5-15); White Blood Count 6.6 10^3/ul (3.5-10.8)
[2018-03-22 09:46] LABS: ALT 15 U/L (7-52); AST 13 U/L (13-39); Albumin 4.1 g/dL (3.2-5.2); Albumin/Globulin Ratio 1.5 (1-3); Alkaline Phosphatase 64 U/L (34-104); Anion Gap 6 mmol/L (2-11); BUN/Creatinine Ratio 16.7 (8-20); Blood Urea Nitrogen 14 mg/dL (6-24); C Reactive Protein < 1.00 mg/L (<8.01); CO2 Carbon Dioxide 24 mmol/L (22-32); Calcium 9.3 mg/dL (8.6-10.3); Chloride 108 mmol/L (101-111); EGFR African American 86.8 (>60); EGFR Non-African American 71.8 (>60); Globulin 2.7 g/dL (2-4); Glucose 117 mg/dL (70-100); Potassium 3.7 mmol/L (3.5-5.0); Sodium 138 mmol/L (135-145); Total Protein 6.8 g/dL (6.4-8.9)
[2018-03-22 11:00] VITALS: BP 163/114
== END 2018-03-22 10:59 | disposition home or self-care (01) ==
LOC: ED 08:42
DX: K58.9 Irritable bowel syndrome, unspecified (principal); K22.6 Gastro-esophageal laceration-hemorrhage syndrome; R10.9 Unspecified abdominal pain; R11.10 Vomiting, unspecified; R51 Headache; J02.9 Acute pharyngitis, unspecified
CPT/HCPCS: 36415; 80053; 83605; 83690; 85025; 86140; 93005; 96374; 96375; 99283; A9270-GY; J1240; J1630

== ENCOUNTER 2019-04-23 18:46 | Emergency (ER) | payer BC ==
--- OUTSIDE RECORDS SUMMARY | 2019-04-23 19:17 | XMS REPORT | Summary of Care ---
:1970 Author Organization [facility] Address [address] [place] [address] Care Team Providers Name Role Phone Elodia Maria MD Primary Care Provider Reason for Visit Reason Comments Check Up post nasal drip, tightness in chest, sore throat started a week ago, congestion and pressure wednesday Encounter Details Date Type Department Care Team Description 04/19/2019 Office Visit [facility] Shannan Eden [facility] [employer] pneumonia of right [address] [place] [address] [place] [address] ([facility]) (Primary Dx) [phone] Allergies Active Allergy Reactions Severity Noted Date Comments Reglan OPTICIAN Reaction 03/29/2018 documented as of this encounter (statuses as of 04/19/2019) Medications Medication Sig Dispensed Refills Start Date End Date Status daily vitamin Oral Tab DAILY. 0 Active ketoconazole (NIZORAL) 1 Appl by Topical 60 g 2 09/01/2018 Active 2 % Apply externally route TWICE DAILY. CreamIndications: Fungal skin infection bisoprolol (ZEBETA) 5 Take 1 Tab by 90 Tab 3 09/26/2018 Active MG Oral mouth DAILY. TabIndications: Tachycardia, Essential hypertension ondansetron (ZOFRAN) 4 Take 4 mg by mouth 20 Tab 0 10/14/2018 Active MG Oral Tab EVERY EIGHT HOURS NEEDED (nausea). Omeprazole 40 MG Oral Take 1 Cap by 90 Cap 3 10/24/2018 Active CAPSULE DELAYED mouth DAILY. RELEASE spironolactone Take 0.5-1 Tabs by 90 Tab 3 10/31/2018 Active (ALDACTONE) 25 MG Oral mouth DAILY. Stop TabIndications: Cyst dyazide of ovary, unspecified laterality, Hirsutism levothyroxine Take 1 Tab by 90 Tab 1 11/30/2018 Active (SYNTHROID) 175 MCG mouth BEFORE Oral TabIndications: BREAKFAST. Hypothyroidism, unspecified type Rosuvastatin Calcium Take 1 Tab by 90 Tab 3 12/06/2018 Active (CRESTOR) 20 MG Oral mouth DAILY. D/c TabIndications: Mixed simvastatin hyperlipidemia cyclobenzaprine Take 1 Tab by 30 Tab 1 12/21/2018 Active (FLEXERIL) 10 MG Oral mouth THREE TIMES Tab DAILY NEEDED (neck spasm). Clobetasol Propionate APPLY TWO TIMES 100 g 0 03/06/2019 Active 0.05 % Apply DAILY NEEDED externally Foam (FOR PSORIASIS). diclofenac (VOLTAREN) 4 g by Topical 100 g 3 03/22/2019 Active 1 % Transdermal route FOUR TIMES GelIndications: Right DAILY NEEDED wrist tendonitis (wrist pain). doxycycline Take 1 Tab by 14 Tab 0 04/19/2019 Active (VIBRAMYCIN) 100 MG mouth TWICE DAILY. Oral TabIndications: Community acquired pneumonia of right upper lobe of lung (HCC) albuterol HFA Take 2 Puffs by 1 Inhaler 1 04/19/2019 Active (VENTOLIN) 108 (90 inhalation EVERY Base) MCG/ACT FOUR HOURS Inhalation Aero NEEDED (shortness SolnIndications: of Community acquired breath/wheezing). pneumonia of right upper lobe of lung (HCC) benzonatate (TESSALON Take 1 Cap by 42 Cap 0 04/19/2019 Active PERLES) 100 MG Oral mouth THREE TIMES CapIndications: DAILY. Community acquired pneumonia of right upper lobe of lung (HCC) documented as of this encounter (statuses as of 04/19/2019) Active Problems Problem Noted Date Chronic LUQ pain 04/29/2018 Overview: Added automatically from request for surgery [id number] Paroxysmal atrial fibrillation 03/14/2018 Biliary colic 05/28/2015 Back pain 07/04/2010 Mixed hyperlipidemia 06/14/2009 Ankle arthritis 06/15/2008 Hypothyroidism 06/14/2007 Psoriasis 06/14/2007 Depression 06/14/2007 HTN (hypertension) 06/14/2007 GERD (gastroesophageal reflux disease) 06/14/2007 Cyclic vomiting syndrome documented as of this encounter (statuses as of 04/19/2019) Resolved Problems Problem Noted Date Resolved Date Other (abnormal) findings on radiological examination of 07/26/20072013 breast Helicobacter pylori infection 06/14/2007 07/04/2010 Overview: Replaced inactive diagnosis documented as of this encounter (statuses as of 04/19/2019) Immunizations Name Administration Dates Next Due Influenza (IM) Preservative Free 11/08/2018, 11/08/2018, 11/29/2017, 11/24/2016, 10/28/2015, 11/28/2013, 11/20/2012, 11/09/2011, 10/29/2008 Influenza Vaccine Whole 10/28/2015, 11/15/2014, 11/07/2010, 10/29/2008 MMR VACCINE 06/08/2011, 05/08/2011 TDAP Vaccine 05/12/2010 documented as of this encounter Social History Tobacco Use Types Packs/Day Years Used Date Never Smoker Smokeless Tobacco: Never Used Alcohol Use Drinks/Week oz/Week Comments Yes 0 Standard drinks or equivalent 0.0 rare Alcohol Habits Answer Date Recorded How often do you have a drink containing alcohol? Monthly or less 03/29/2018 How many drinks containing alcohol do you have on a Not asked typical day when you are drinking? How often do you have six or more drinks on one Not asked occasion? Sex Assigned at Date Recorded Not on file documented as of this encounter Last Filed Vital Signs Vital Sign Reading Time Taken Comments Blood Pressure 122/68 04/19/2019 9:27 AM EDT Pulse 63 04/19/2019 9:27 AM EDT Temperature 37.3 04/19/2019 9:27 AM EDT C (99.1 F) Respiratory Rate - - Oxygen Saturation 99% 04/19/2019 9:27 AM EDT Inhaled Oxygen Concentration - - Weight 114.3 kg (252 lb) 04/19/2019 9:27 AM EDT Height 157.5 cm (5' 2") 04/19/2019 9:27 AM EDT Body Mass Index 46.09 04/19/2019 9:27 AM EDT documented in this encounter Patient Instructions Patient InstructionsShannan Eden NP - 04/19/2019 9:20 AM EDTYou have been prescribed doxycycline - take one tablet twice daily for 7 days. ?? This drug will make you more susceptible to sunburn - be sure to wear sunscreen when exposed to the sun or outside. ?? Take with food. Don't take with milk. Albuterol 2 puffs every 4 hours as needed for shortness of breath or wheezing, use with the spacer you already have. Tessalon perles - one tablet three times daily as needed for cough. You have been prescribed an antibiotic for treatment of your condition. It is important to rememberthat antibiotics treat bacterial infections. In order for them to be effective - you must take ALL of the medication and take it exactly as prescribed. FINISH THE MEDICATION - even if you are feelingbetter. Antibiotics can cause stomach upset and diarrhea. You can help decrease these symptoms by also taking a probiotic while using the medication (Align, Culturelle or the like). Take with food if recommended by the pharmacist. If you are not feeling better in 3-5 days - call or return to the office. documented in this encounter Progress Notes Shannan Eden NP - 04/19/2019 9:20 AM EDT PATIENT: Yudith Ta : 1970 DATE OF SERVICE: 04/19/2019 CHIEF COMPLAINT: Chief Complaint Patient presents with ? Check Up post nasal drip, tightness in chest, sore throat started a week ago, congestion and pressure wednesday Subjective HISTORY OF PRESENT ILLNESS: Yudith Ta is a 49-y.o. female. HPI Sick x1 week, sore throat, sinus pain and pressure, cough congestion, chest feeling tight. Had someone at work listen to her lungs and heard crackles. A lot of post nasal drip, sometimes so much gagging. Tmax 99.9. Malaise and fatigue. Cough productive green/yellow, nasal drainage is clear. Mildshortness of breath. No wheezing. 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 Non smoker, no asthma or copd. She has a tendency to get bronchitis. Past Medical History: Diagnosis Date ? Back pain muscular, PT in past ? 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 ? Cyclic vomiting syndrome ? Depression ? GERD (gastroesophageal reflux disease) ? Helicobacter pylori ? HTN (hypertension) ? Hypothyroidism ? Lipidoses ? Psoriasis ? Sciatica ? Unspecified essential hypertension Family History Problem Relation Age of Onset ? Heart Father quad bypass, M. Gravis ? Hypertension Father ? High Cholesterol Father ? Arthritis Father ? Blood Disease Father thrombocytopenia ? Genetic Father myesthenia gravis ? Breast Cancer Paternal Aunt 70 ? Cancer Paternal Aunt 70 breast cancer ? Dementia Paternal Aunt ? Cancer Mother bone ? Thyroid Mother ? Stroke Mother 55 ? Osteoporosis Mother ? Asthma Child mild ? Respiratory Child ? Cancer Paternal Grandfather prostate ? Alcohol/Drug No family history ? Allergies No family history ? Diabetes No family history ? GI No family history ? Genitourinary () No family history ? Psychiatry No family history ? Seizures No family history Current Outpatient Medications Medication Sig ? albuterol HFA (VENTOLIN) 108 (90 Base) MCG/ACT Inhalation Aero Soln Take 2 Puffs by inhalation EVERY FOUR HOURS NEEDED (shortness of breath/ wheezing). ? benzonatate (TESSALON PERLES) 100 MG Oral Cap Take 1 Cap by mouth THREE TIMES DAILY. ? bisoprolol (ZEBETA) 5 MG Oral Tab Take 1 Tab by mouth DAILY. ? Clobetasol Propionate 0.05 % Apply externally Foam APPLY TWO TIMES DAILY NEEDED (FOR PSORIASIS). ? cyclobenzaprine (FLEXERIL) 10 MG Oral Tab Take 1 Tab by mouth THREE TIMES DAILY NEEDED (neck spasm). ? daily vitamin Oral Tab DAILY. ? diclofenac (VOLTAREN) 1 % Transdermal Gel 4 g by Topical route FOUR TIMES DAILY NEEDED (wrist pain). ? doxycycline (VIBRAMYCIN) 100 MG Oral Tab Take 1 Tab by mouth TWICE DAILY. ? ketoconazole (NIZORAL) 2 % Apply externally Cream 1 Appl by Topical route TWICE DAILY. ? levothyroxine (SYNTHROID) 175 MCG Oral Tab Take 1 Tab by mouth BEFORE BREAKFAST. ? Omeprazole 40 MG Oral CAPSULE DELAYED RELEASE Take 1 Cap by mouth DAILY. ? ondansetron (ZOFRAN) 4 MG Oral Tab Take 4 mg by mouth EVERY EIGHT HOURS NEEDED (nausea). ? Rosuvastatin Calcium (CRESTOR) 20 MG Oral Tab Take 1 Tab by mouth DAILY. D/c simvastatin ? spironolactone (ALDACTONE) 25 MG Oral Tab Take 0.5-1 Tabs by mouth DAILY. Stop dyazide No current facility-administered medications for this visit. Allergies Allergen Reactions ? Reglan OPTICIAN Reaction Social History Socioeconomic History ? Marital status: Spouse name: Not on file ? Number of children: Not on file ? Years of education: Not on file ? Highest education level: Not on file Occupational History ? Not on file Social Needs ? Financial resource strain: Not on file ? Food insecurity Worry: Not on file Inability: Not on file ? Transportation needs Medical: Not on file Non-medical: Not on file Tobacco Use ? Smoking status: Never Smoker ? Smokeless tobacco: Never Used Substance and Sexual Activity ? Alcohol use: Yes Alcohol/week: 0.0 standard drinks Frequency: Monthly or less Comment: rare ? Drug use: No ? Sexual activity: Not Currently Lifestyle ? Physical activity Days per week: Not on file Minutes per session: Not on file ? Stress: Not on file Relationships ? Social connections Talks on phone: Not on file Gets together: Not on file Attends adventism service: Not on file Active member of club or organization: Not on file Attends meetings of clubs or organizations: Not on file Relationship status: Not on file ? Intimate partner violence Fear of current or ex partner: Not on file Emotionally abused: Not on file Physically abused: Not on file Forced sexual activity: Not on file Other Topics Concern ? Back Care Not Asked ? Bike Helmet Not Asked ? Blood Transfusions Not Asked ? Caffeine Concern Yes Comment: 1-2/day ? Exercise Yes ? Hobby Hazards Not Asked ? International Travel Not Asked ? Service Not Asked ? Occupational Exposure Not Asked ? Seat Belt Yes ? Self-Exams Not Asked ? Sleep Concern Not Asked ? Special Diet No ? Stress Concern Not Asked ? Weight Concern Not Asked Social History Narrative Work at [employer] REVIEW OF SYSTEMS: Review of Systems Constitutional: Positive for chills and malaise/fatigue. Negative for fever. HENT: Positive for congestion, sinus pain and sore throat. Negative for ear pain and hearing loss. Respiratory: Positive for cough, sputum production, shortness of breath and wheezing. Cardiovascular: Negative for chest pain and palpitations. Gastrointestinal: Positive for diarrhea (loose stool x2 days). Negative for abdominal pain, nausea and vomiting. Musculoskeletal: Negative for joint pain and myalgias. Neurological: Negative for dizziness and headaches. Objective PHYSICAL EXAM: VITALS: BP 122/68 (BP Location: Right arm, Patient Position: Sitting) | Pulse 63 | Temp 99.1 F (37.3 C) (Tympanic) | Ht 5' 2" (1.575 m) | Wt 252 lb (114.3 kg) | SpO2 99% | BMI 46.09 kg/m Body mass index is 46.09 kg/m . Physical Exam Vitals signs and nursing note reviewed. Constitutional: General: She is not in acute distress. Appearance: Normal appearance. She is well-developed. She is not ill- appearing or toxic-appearing. HENT: Right Ear: Tympanic membrane, ear canal and external ear normal. No mastoid tenderness. Tympanic membrane is not erythematous, retracted or bulging. Left Ear: Tympanic membrane, ear canal and external ear normal. No mastoid tenderness. Tympanic membrane is not erythematous, retracted or bulging. Nose: Mucosal edema (erythema) present. Right Sinus: Maxillary sinus tenderness present. No frontal sinus tenderness. Left Sinus: Maxillary sinus tenderness present. No frontal sinus tenderness. Mouth/Throat: Mouth: Mucous membranes are moist. Pharynx: Oropharynx is clear. Uvula midline. Posterior oropharyngeal erythema (pnd) present. No oropharyngeal exudate. Tonsils: No tonsillar exudate. 1+ on the right. 1+ on the left. Eyes: Conjunctiva/sclera: Conjunctivae normal. Cardiovascular: Rate and Rhythm: Normal rate and regular rhythm. Heart sounds: Normal heart sounds. Pulmonary: Effort: Pulmonary effort is normal. Breath sounds: Examination of the right-upper field reveals wheezing. Wheezing present. Lymphadenopathy: Head: Right side of head: No submental, submandibular or tonsillar adenopathy. Left side of head: No submental, submandibular or tonsillar adenopathy. Cervical: No cervical adenopathy. Right cervical: No superficial cervical adenopathy. Left cervical: No superficial cervical adenopathy. Upper Body: Right upper body: No supraclavicular adenopathy. Left upper body: No supraclavicular adenopathy. Neurological: Mental Status: She is alert. Psychiatric: Behavior: Behavior is cooperative. ASSESSMENT / IMPRESSION: ICD-9-CM ICD-10-CM 1. Community acquired pneumonia of right upper lobe of lung (HCC) 481 J18.1 doxycycline (VIBRAMYCIN) 100 MG Oral Tab albuterol HFA (VENTOLIN) 108 (90 Base) MCG/ACT Inhalation Aero Soln benzonatate (TESSALON PERLES) 100 MG Oral Cap Plan 1. Community acquired pneumonia of right upper lobe of lung (HCC) -Doxycycline to cover both sinusitis and possible pna. -albuterol inhaler prn with spacer -tessalon prn for cough. -work note given. -return if not improving. - doxycycline (VIBRAMYCIN) 100 MG Oral Tab; Take 1 Tab by mouth TWICE DAILY. Dispense: 14 Tab; Refill: 0 - albuterol HFA (VENTOLIN) 108 (90 Base) MCG/ACT Inhalation Aero Soln; Take 2 Puffs by inhalation EVERY FOUR HOURS NEEDED (shortness of breath/wheezing). Dispense: 1 Inhaler; Refill: 1 - benzonatate (TESSALON PERLES) 100 MG Oral Cap; Take 1 Cap by mouth THREE TIMES DAILY. Dispense: 42 Cap; Refill: 0 Author: Shannan Eden NP 04/19/2019 12:40 documented in this encounter Plan of Treatment Date Type Specialty Care Team Description 04/25/2019 Office Visit Physical Therapy Martina Thompson, PT [address] [place] [address] [phone] Health Maintenance Due Date Last Done Comments CT Colonography 1970 FIT-DNA 1970 FIT/FOBT 1970 Sigmoidoscopy 1970 ZOSTER IMMUNIZATION SERIES 01/24/2018 (1 of 2) MAMMOGRAM (SCREENING) 05/16/2019 11/14/2018, 11/08/2017, 11/02/2016, Additional history exists DEPRESSION SCREENING 06/21/2019 06/20/2018 DIABETES SCREENING 11/25/2019 11/24/2018, 03/21/2018, 03/14/2018, Additional history exists LIPID DISORDER SCREENING 12/07/2019 12/06/2018, 11/24/2018, 11/22/2017, Additional history exists DTaP/Tdap/Td Vaccines (2 - 05/12/2020 05/12/2010 Tdap) Colonoscopy 11/03/2020 11/04/2015, 01/19/2011, 01/19/2011, Additional history exists Colonoscopy 11/03/2020 11/04/2015, 01/19/2011, 12/22/2007 Colorectal Cancer Screening 11/03/2020 PAP SMEAR 11/30/2021 11/30/2018, 11/08/2015, 11/08/2015, Additional history exists INFLUENZA VACCINE Completed 11/08/2018, 11/29/2017, 11/24/2016, Additional history exists HEPATITIS A IMMUNIZATION Aged Out No longer eligible SERIES based on patient's age to complete this topic HPV IMMUNIZATION SERIES Aged Out No longer eligible based on patient's age to complete this topic MENINGOCOCCAL VACCINE IMM Aged Out No longer eligible based on patient's age to complete this topic PNEUMOCOCCAL 0-64 YRS Aged Out No longer eligible based on patient's age to complete this topic documented as of this encounter Goals Goal Patient Goal Associated Recent Patient-Stated? Author Type Problems Progress Blood Pressure Blood Pressure 122/68 No Deniz, < 140/90 (04/19/2019 MD Wilfredo 9:27 AM EDT) Note: This is an individualized treatment (blood pressure) goal for Yudith Ta: Displayed above (on the left) is your goal for blood pressure control. Your most recent blood pressure is also shown above, on the right. You should try to achieve blood pressures that are lower than your goal listed above (on the left). Depression screen (PHQ-9) total score < 5 Depression No Wilfredo Guaman MD Note: This is an individualized treatment (depression) goal for Yudith Ta: Displayed above is your goal for a depression screening (PHQ-9) score that would indicate good control of your depression. Weight loss vs. 18 mo Lifestyle 3 (04/19/2019 9:27 AM EDT) No Wilfredo Guaman MD max (lbs) >= 10 Note: This is an individualized lifestyle goal for Yudith Ta: Your body mass index (BMI) is more than 30. You should lose weight. A reasonable starting goal is to lose 10 pounds. Displayed above is how many pounds you have lost thus far towards your 10 pound weight loss goal. Keep a regular sleep schedule Lifestyle No Wilfredo Guaman MD Note: This is an individualized lifestyle goal for Yudith Ta: Please maintain a regular sleep schedule. This may help with some symptoms of depression. Take all prescribed medications as directed Self-management Wilfredo Dailey MD Note: This is an individualized self-management goal for Yudith Ta: Please take all prescribed medications as directed. 1. Do not skip doses. If you cannot afford your medications, talk with your doctor. 2. Use a pill reminder system such as a pill box if needed. Your pharmacist can help you with this. 3. Contact your Pharmacy 5 days before your medication runs out. If you cannot take your medications for any reasons, talk with your doctor. 4. Please bring all of your medication bottles and inhalers (or a list of all your medications/inhalers) with you to every visit. Potential barriers to meeting all of your care plan goals will continue to be addressed on an ongoing basis. documented as of this encounter Results Not on filedocumented in this encounter Visit Diagnoses Diagnosis Community acquired pneumonia of right upper lobe of lung (HCC) documented in this encounter Insurance Payer Benefit Plan / Subscriber ID Effective Phone Address Type Group Dates KAROLYN MUNOZ [id number] 2015-Prese Karolyn HIGHMARK HIGHMARK PPO nt [employer] BLUE Guarantor Name Account Type Relation to Date of Phone Billing Address Patient Yudith Ta Personal/Famil [phone], [place] ([place]) [id number] documented as of this encounter Advance Directives Type Date Recorded Patient Relationship Manager Explanation Advance Directives 11/15/2015 1:47 PM Health Care Proxy
--- OUTSIDE RECORDS SUMMARY | 2019-04-23 19:17 | XMS REPORT | Summary of Care ---
:1970 Author Organization [facility] Address [address] [address] Care Team Providers Name Role Phone Elodia Maria MD Primary Care Provider Reason for Visit Reason Comments Wrist Injury Encounter Details Date Type Department Care Team Description 04/12/2019 Office Visit [facility] - Jay, Martina, Tendinitis of right [place] Physical PT wrist (Primary Dx) Therapy [address] [address] [place] [address] [address] [phone] [place] [address] [phone] Allergies Active Allergy Reactions Severity Noted Date Comments Reglan OPERATING ROOM TECHNOLOGIST Reaction 03/29/2018 documented as of this encounter (statuses as of 04/12/2019) Medications Medication Sig Dispensed Refills Start Date [...] Right DAILY NEEDED wrist tendonitis (wrist pain). documented as of this encounter (statuses as of 04/12/2019) Active Problems Problem Noted Date Chronic LUQ pain 04/29/2018 Overview: Added automatically from request for surgery [id number] Paroxysmal atrial fibrillation 03/14/2018 Biliary colic 05/28/2015 Back pain 07/04/2010 Mixed hyperlipidemia 06/14/2009 Ankle arthritis 06/15/2008 Hypothyroidism 06/14/2007 Psoriasis 06/14/2007 Depression 06/14/2007 HTN (hypertension) 06/14/2007 GERD (gastroesophageal reflux disease) 06/14/2007 Cyclic vomiting syndrome documented as of this encounter (statuses as of 04/12/2019) Resolved Problems Problem Noted Date Resolved Date Other (abnormal) findings on radiological examination of 07/26/20072013 breast Helicobacter pylori infection 06/14/2007 07/04/2010 Overview: Replaced inactive diagnosis documented as of this encounter (statuses as of 04/12/2019) Immunizations Name Administration Dates Next Due Influenza [...] of this encounter Last Filed Vital Signs Not on filedocumented in this encounter Progress Notes Martina Thompson, PT - 04/12/2019 7:00 AM EST [facility] Initial Evaluation Outpatient [facility] [address] [place] [phone] Patient: Yudith Ta : 1970 Date of Service: 04/12/2019 Referring Physician: Shannan Eden Primary Diagnosis: ICD-9-CM ICD-10-CM 1. Tendinitis of right wrist 727.05 M77.8 Time In: 0700 Time Out: 0730 Subjective: She is a 49-y.o.-year-old female who presents for outpatient physical therapy with a chief complaint of R wrist/forearm pain, onset 4-6 weeks ago. Gradual onset after using new machines atthe gym and then driving longer distances. The wrist pain is improving with splinting at night. 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 Has had to modify mousing. Prior Functional Status: not limited Current Functional Status: not able to do gym activity, pain with work duties, driving Abuse/Neglect Screening Are you being threatened or hurt by anyone? : No FOTO Data FOTO Intake Completed: Yes Intake FS Score: 50 Predicted FS Score: 66 Objective: Past Medical History: Diagnosis Date ? Back pain muscular, PT in past ? 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 ? Cyclic vomiting syndrome ? Depression ? GERD (gastroesophageal reflux disease) ? Helicobacter pylori ? HTN (hypertension) ? Hypothyroidism ? Lipidoses ? Psoriasis ? Sciatica ? Unspecified essential hypertension Past Surgical History: Procedure Laterality Date ? EXCISION NASAL POLYP, SIMPLE 1985 right sinus ? KNEE ARTHROSCOPY Right 2000 right, ACL repair ? LAPAROSCOPIC CHOLECYSTECTOMY N/A 05/28/2015 Procedure: LAPAROSCOPIC CHOLECYSTECTOMY; Surgeon: Richard Arboleda MD; Location: [facility] ? [place] DELIVERY ONLY 02/14/1997 , Low Cervical, x 1 ? [place] LAP,DIAGNOSTIC ABDOMEN N/A 05/11/2018 Procedure: LAPAROSCOPY DIAGNOSTIC; Surgeon: Issa Acosta MD; Location: [facility] ? [place] REMOVAL GALLBLADDER [address] Arboleda Current Outpatient Medications: ? bisoprolol (ZEBETA) 5 MG Oral Tab, Take 1 Tab by mouth DAILY., Disp: 90 Tab, Rfl: 3 ? Clobetasol Propionate 0.05 % Apply externally Foam, APPLY TWO TIMES DAILY NEEDED (FOR PSORIASIS)., Disp: 100 g, Rfl: 0 ? cyclobenzaprine (FLEXERIL) 10 MG Oral Tab, Take 1 Tab by mouth THREE TIMES DAILY NEEDED (neck spasm)., Disp: 30 Tab, Rfl: 1 ? daily vitamin Oral Tab, DAILY. , Disp: , Rfl: ? diclofenac (VOLTAREN) 1 % Transdermal Gel, 4 g by Topical route FOUR TIMES DAILY NEEDED (wrist pain)., Disp: 100 g, Rfl: 3 ? ketoconazole (NIZORAL) 2 % Apply externally Cream, 1 Appl by Topical route TWICE DAILY., Disp: 60 g, Rfl: 2 ? levothyroxine (SYNTHROID) 175 MCG Oral Tab, Take 1 Tab by mouth BEFORE BREAKFAST., Disp: 90Tab, Rfl: 1 ? Omeprazole 40 MG Oral CAPSULE DELAYED RELEASE, Take 1 Cap by mouth DAILY., Disp: 90 Cap, Rfl: 3 ? ondansetron (ZOFRAN) 4 MG Oral Tab, Take 4 mg by mouth EVERY EIGHT HOURS NEEDED (nausea)., Disp: 20 Tab, Rfl: 0 ? Rosuvastatin Calcium (CRESTOR) 20 MG Oral Tab, Take 1 Tab by mouth DAILY. D/c simvastatin, Disp: 90 Tab, Rfl: 3 ? spironolactone (ALDACTONE) 25 MG Oral Tab, Take 0.5-1 Tabs by mouth DAILY. Stop dyazide, Disp: 90 Tab, Rfl: 3 Allergies Allergen Reactions ? Reglan OPERATING ROOM TECHNOLOGIST Reaction Posture: rounded shoulders Palpation: proximal common extensor tendons Wrist P/AROM: Flexion/extension are WNL but mild pain ulnar border of wrist into extension Supination/pronation: WNL and pain free Strength: Wrist flexion: 5/5 pain free Wrist extension: 5/5 with mild pain on R Special tests: Negative squeeze test, negative cozens for lateral epicondylitis but positive for reproduction of her symptoms at wrist. Plan of Care Plan of Care Start Date: 04/12/19 Plan of Care Expiration Date: 07/13/19 Prior Function Comment: not limited Current Function Comment: not able to do gym activity, pain with work duties, driving Rehabilitative Prognosis: Excellent Planned Intervention(s): PT Eval Low Complexity (57167);Therapeutic Exercise ( Timed) (83672);Ultrasound (Timed) (79573);Manual Therapy (Timed) (98149) Frequency of Treatments: 1 time weekly Duration of Treatments: 3 months History Components: Low (No personal factors and/or comorbidities) Examination of Body Systems/Components: Low (Addressing 1-2 elements)(painful resisted wrist extension, thumb extension, 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 Pt currently demonstrates decreased wrist flexion mobility, painful resisted wrist extension and finger extension, painful gripping. These impairments are resulting in functional limitations including pain with mousing and repetitive job duties, painful sleeping at night, unable to do upper body work at the gym. Signs and symptomsconsistent with tendonitis of extensor digitorum. Pt would therefore benefit from skilled physical therapy in order to restore pain free mobility and senior scheduler strength for both work and recreational activities. Was Physical Therapy treatment performed at this visit? Yes: Interventions: FOTO Data FOTO Intake Completed: Yes Intake FS Score: 50 Predicted FS Score: 66 Therapeutic Exercises (49075) Patient Education/Home Exercise Program: wrist extensor stretching Number of Exercises?: 1 Manual Therapy (24700) Soft Tissue Mobilization: Manual Tissue Mobilization Soft Tissue Mobilization Details: wrist extensors PROM: wrist flexion/extension, supination/pronation Total Minutes (All Manual Therapy): 10 Plan for Next Visit: US to wrist, MFR, KTTAPe if needed Evaluation Complexity Assessment: History Components: Low (No personal factors and/or comorbidities) Examination of Body Systems/Components: Low (Addressing 1-2 elements)(painful resisted wrist extension, thumb extension, dec senior scheduler) Clinical Presentation: Stable - unchanging or predictable (Low) Clinical Decision Making (complexity): Low Treatment Number: 1 Total Time of Evaluation: 30 Total Number of Timed Code Treatment Minutes: 10 Author: Martina Thompson, PT 04/12/2019 07:40 documented in this encounter Plan of Treatment Date Type Specialty Care Team Description 04/18/2019 Office Visit Physical Therapy Martina Thompson, PT [address] [place] [address] [phone] Health Maintenance Due Date Last Done Comments ZOSTER IMMUNIZATION SERIES 01/24/2018 (1 of 2) MAMMOGRAM (SCREENING) 05/16/2019 11/14/2018, 11/08/2017, 11/02/2016, Additional history exists DEPRESSION SCREENING 06/21/2019 06/20/2018 DIABETES SCREENING 11/25/2019 11/24/2018, 03/21/2018, 03/14/2018, Additional history exists LIPID DISORDER SCREENING 12/07/2019 12/06/2018, 11/24/2018, 11/22/2017, Additional history exists DTaP/Tdap/Td Vaccines (2 - 05/12/2020 05/12/2010 Tdap) Colonoscopy 11/03/2020 11/04/2015, 01/19/2011, 01/19/2011, Additional history exists PAP SMEAR 11/30/2021 11/30/2018, 11/08/2015, 11/08/2015, Additional [...] Type Problems Progress Blood Pressure Blood Pressure 124/82 No Deniz, < 140/90 (03/22/2019 MD Wilfredo 2:13 PM EST) Note: This is an individualized treatment (blood [...] depression. Weight loss vs. 18 mo Lifestyle 5 (03/22/2019 2:13 PM EST) No Wilfredo Guaman MD max (lbs) >= [...] goal. Keep a regular sleep schedule Lifestyle Wilfredo Dailey MD Note: This is an individualized lifestyle [...] filedocumented in this encounter Visit Diagnoses Diagnosis Tendinitis of right wrist Other tenosynovitis of hand and wrist documented in this encounter Insurance Payer Benefit Plan / Subscriber ID Effective Phone Address Type Group Dates ALEXANDER PARR [id number] 2015-Rickey Parr [employer] PPO nt [employer] BLUE Guarantor Name Account Type Relation to Date of Phone Billing Address Patient Yudith Ta Personal/Famil 1970 [phone] [address] ([address]) [address] [place], [place] (Work) [address] documented as of this encounter Advance Directives Type Date Recorded Patient Enamel Dipper Explanation Advance Directives 11/15/2015 1:47 PM Health Care Proxy
--- OUTSIDE RECORDS SUMMARY | 2019-04-23 19:17 | XMS REPORT | Summary of Care ---
:1970 Author Organization [facility] Address [address] [address] Care Team Providers Name Role Phone Elodia Maria MD Primary Care Provider Reason for Visit Reason Comments Wrist Pain Encounter Details Date Type Department Care Team Description 04/18/2019 Office Visit [facility] - Jay, Martina, Tendinitis of right [place] Physical PT wrist (Primary Dx) Therapy [address] [address] [place] [address] [address] [phone] [place] [address] [phone] Allergies Active Allergy Reactions Severity Noted Date Comments Reglan CENTRAL OFFICE TROUBLE SHOOTER Reaction 03/29/2018 documented as of this encounter (statuses as of 04/18/2019) Medications Medication Sig Dispensed Refills Start Date [...] as of this encounter (statuses as of 04/18/2019) Active Problems Problem Noted Date Chronic LUQ pain 04/29/2018 Overview: Added automatically from request for surgery [id number] Paroxysmal atrial fibrillation 03/14/2018 Biliary colic 05/28/2015 Back pain 07/04/2010 Mixed hyperlipidemia 06/14/2009 Ankle arthritis 06/15/2008 Hypothyroidism 06/14/2007 Psoriasis 06/14/2007 Depression 06/14/2007 HTN (hypertension) 06/14/2007 GERD (gastroesophageal reflux disease) 06/14/2007 Cyclic vomiting syndrome documented as of this encounter (statuses as of 04/18/2019) Resolved Problems Problem Noted Date Resolved Date Other (abnormal) findings on radiological examination of 07/26/20072013 breast Helicobacter pylori infection 06/14/2007 07/04/2010 Overview: Replaced inactive diagnosis documented as of this encounter (statuses as of 04/18/2019) Immunizations Name Administration Dates Next Due Influenza [...] encounter Progress Notes Martina Thompson, PT - 04/18/2019 7:00 AM EDT [facility] Treatment Note Outpatient Physical [facility] [address] [place] [phone] Treatment Number: 2 Referring Physician: Shannan Eden Primary Diagnosis: ICD-9-CM ICD-10-CM 1. Tendinitis of right wrist 727.05 M77.8 Plan of Care Expiration Date: Time In: 0700 Time Out: 729 Total Session Minutes: 30 Pain at Start of Care: 02/17 Pain at End of Care: 02/17 Subjective Comments: Doing better with wearing splint at night Interventions: Manual Therapy (22216) Soft Tissue Mobilization: Manual Tissue Mobilization Soft Tissue Mobilization Details: wrist extensors Instrument-Assisted Soft Tissue Mobilization: hawkgrps IASTM Details: wrist extensors PROM: wrist flexion/extension, supination/pronation Total Minutes (All Manual Therapy): 25 Modalities Modalities Needed?: Ultrasound Ultrasound (03306) Reason for Use: promote healing and circulation Body Area: dorsal wrist Frequency: 1.0 MHz Frequency Description: Continuous Intensity: .7wcm2 Total Minutes: 5 minutes Assessment: Patient demonstrates end range pain into extension passive and actively. We attempted wrist extensions with light free weights, this was pain free until about 8 reps with 2#. Patient alsoreports ongoing difficulty in gripping, lifting bags, computer work, gym activities. 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 Plan for Next Visit: Re rest wrist extensions with FW Total UNTIMED Code Treatment Minutes: Total TIMED Code Treatment Minutes: 30 Total Treatment Minutes: 30 Re- Eval: Insurance/Visits: Author: Martina Thompson, PT 04/18/2019 07:29 documented in this encounter Plan of Treatment Date Type Specialty Care Team Description 04/25/2019 Office Visit Physical Therapy Martina hTompson, PT [address] [id number] [phone] Health Maintenance Due Date Last Done Comments CT Colonography 1970 Colonoscopy 1970 Colorectal Cancer Screening 1970 FIT-DNA 1970 FIT/FOBT 1970 Sigmoidoscopy 1970 [...] Problems Progress Blood Pressure Blood Pressure 124/82 Shagufta Guamna, < 140/90 (03/22/2019 MD Wilfredo 2:13 PM [...] Phone Address Type Group Dates ALEXANDER PARR [id number] 2015-Prese [place] [employer] PPO [employer] BLUE Guarantor Name Account Type Relation to Date of Phone Billing Address Patient Yudith Ta Personal/Famil 1970 [address] [place], [place] (Work) [address] documented as of this encounter Advance Directives Type Date Recorded Patient Physician Office Rep Explanation Advance Directives 11/15/2015 1:47 PM Health Care Proxy
--- OUTSIDE RECORDS SUMMARY | 2019-04-23 19:17 | XMS REPORT | Summary of Care ---
:1970 Author Organization [facility] Address [address] [place] [address] Care Team Providers Name Role Phone Elodia Maria MD Primary Care Provider Reason for Visit Reason Comments Check Up r wrist pain 7-10 days, tingling in fingers and pain shooting to elbow Encounter Details Date Type Department Care Team Description 03/22/2019 Office Visit [place] Shannan Ruiz, Right wrist tendonitis Practice [facility] (Primary Dx) [address] [place] [address] [place] [address] [phone] Allergies Active Allergy Reactions Severity Noted Date Comments 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 0 Active Tab ketoconazole 1 Appl by 60 g 2 Active (NIZORAL) 2 % Apply Topical route 9 externally TWICE DAILY. CreamIndications: Fungal skin infection bisoprolol (ZEBETA) Take 1 Tab by 90 Tab 3 Active 5 MG Oral mouth DAILY. 9 TabIndications: Tachycardia, Essential hypertension ondansetron Take 4 mg by 20 Tab 0 Active (ZOFRAN) 4 MG Oral mouth EVERY 9 Tab EIGHT HOURS NEEDED (nausea). Omeprazole 40 MG Take 1 Cap by 90 Cap 3 Active Oral CAPSULE mouth DAILY. 9 DELAYED RELEASE spironolactone Take 0.5-1 Tabs 90 Tab 3 Active (ALDACTONE) 25 MG by mouth DAILY. 9 Oral Stop dyazide TabIndications: Cyst of ovary, unspecified laterality, Hirsutism levothyroxine Take 1 Tab by 90 Tab 1 Active (SYNTHROID) 175 MCG mouth BEFORE 9 Oral BREAKFAST. TabIndications: Hypothyroidism, unspecified type Rosuvastatin Take 1 Tab by 90 Tab 3 Active Calcium (CRESTOR) mouth DAILY. 9 20 MG Oral D/c simvastatin TabIndications: Mixed hyperlipidemia cyclobenzaprine Take 1 Tab by 30 Tab 1 Active (FLEXERIL) 10 MG mouth THREE 9 Oral Tab TIMES DAILY NEEDED (neck spasm). Clobetasol APPLY TWO TIMES 100 g 0 Active Propionate 0.05 % DAILY NEEDED 0 Apply externally (FOR Foam PSORIASIS). diclofenac 4 g by Topical 100 g 3 Active (VOLTAREN) 1 % route FOUR 0 Transdermal TIMES DAILY GelIndications: NEEDED (wrist Right wrist pain). tendonitis diclofenac 4 g by Topical 100 g 3 03/22/19 Discontinued (VOLTAREN) 1 % route FOUR 9 20 (Reorder) Transdermal TIMES DAILY GelIndications: NEEDED (knee Left foot pain pain). documented as of this encounter (statuses as of 03/22/2019) Active Problems Problem Noted Date Chronic LUQ pain 04/29/2018 Overview: Added automatically from request for surgery [id number] Paroxysmal atrial fibrillation 03/14/2018 Biliary colic 05/28/2015 Back pain 07/04/2010 Mixed hyperlipidemia 06/14/2009 Ankle arthritis 06/15/2008 Hypothyroidism 06/14/2007 Psoriasis 06/14/2007 Depression 06/14/2007 HTN (hypertension) 06/14/2007 GERD (gastroesophageal reflux disease) 06/14/2007 Cyclic vomiting syndrome documented as of this encounter (statuses as of 03/22/2019) Resolved Problems Problem Noted Date Resolved Date Other (abnormal) findings on radiological examination of 07/26/20072013 breast Helicobacter pylori infection 06/14/2007 07/04/2010 Overview: Replaced inactive diagnosis documented as of this encounter (statuses as of 03/22/2019) Immunizations Name Administration Dates Next Due Influenza [...] Sign Reading Time Taken Comments Blood Pressure 124/82 03/22/2019 2:13 PM EST Pulse 82 03/22/2019 2:13 PM EST Temperature 36.7 03/22/2019 2:13 PM EST C (98.1 F) Respiratory Rate - - Oxygen Saturation 99% 03/22/2019 2:13 PM EST Inhaled Oxygen Concentration - - Weight 113.4 kg (250 lb) 03/22/2019 2:13 PM EST Height 157.5 cm (5' 2") 03/22/2019 2:13 PM EST Body Mass Index 45.73 03/22/2019 2:13 PM EST documented in this encounter Patient Instructions Patient InstructionsShannan Eden NP - 03/22/2019 2:20 PM ESTDiclofenac four times daily as needed. Use the brace at night, wilner wrap during the day - for comfort. Heat to the area. Tylenol as needed. Avoid aggravating activities for now. If pain worsens or continues - let me know, will think about xray. Patient Education Carpal Tunnel Exercises About this topic Carpal tunnel syndrome is a very common health problem. It is most often caused by doing hand or wrist movements over and over. It can also be caused by using the lower arm muscles too much. The carpal tunnel is the small area in your wrist that your median nerve runs through. A tough band of tissues called a ligament holds everything in place over the carpal tunnel. Your median nerve runsfrom your neck through your lower arm into your hand. If this nerve is squeezed at the wrist area, you may feel pain and have other signs. Your hand, fingers, and wrist may feel weak, numb, or tingly. This is called carpal tunnel syndrome. Your doctor may want you to try exercises to help your signs. Other times, you will do these exercises after surgery. General Before starting with a program, ask your doctor if you are healthy enough to do these exercises. Your doctor may have you work with a senior trainer or physical therapist to make a safe exercise program to meet your needs. Stretching Exercises Stretching exercises keep your muscles flexible. They also stop them from getting tight. Start by doing each of these stretches 2 to 3 times. In order for your body to make changes, you will need to hold these stretches for 20 to 30 seconds. Repeat each exercise 2 to 3 times each day. Do all exercisesslowly. Wrist stretches bending back ?? Straighten your elbow and have your palm facing up. Keeping your elbow straight, bend your wrist back so that your fingers are now pointing to the floor. Grab your hand with your other hand and push back the wrist until you feel a stretch. If you just had surgery, you should not do this exercise until your therapist or doctor tells you it is OK. Strengthening Exercises Strengthening exercises keep your muscles firm and strong. Sit while doing these exercises. Be sure to use good posture. Start by repeating each exercise 2 to 3 times. Work up to doing each exercise 10times. Try to do the exercises 2 to 3 times each day. Do all exercises slowly. Tendon gliding exercises using 4 positions ?? Start by holding your hand with your fingers straight. Then, bend only the last two joints of your fingers and move your fingers into a hook or claw position. Next, straighten your fingers and bend your knuckles to make a flat table top position. Thisis also called the duckbill position. Last, make a full fist. Moving your hand into all 4 positions is one exercise. Wrist exercises: ?? [id number] ?? Hold one arm still using your other hand. Move your hand from side to side. ?? Up and down ?? Hold one arm still using your other hand. Bend your wrist up and down. Wrist circles ?? Move each wrist in a [place] in one direction. Now, move each wrist in a circlein the other direction. What will the results be? Less pain, pressure, stiffness, and swelling in your wrist and hand Ease numbness and tingling in your hand and fingers Increased blood flow to the nerves, muscles, and joints of your wrist and hand to help healing Increased hand and manager legal strength Keep your muscles and joints strong and flexible Helpful tips Stay active and work out to keep your muscles strong and flexible. Be sure you do not hold your breath when exercising. This can raise your blood pressure. If youtend to hold your breath, try counting out loud when exercising. If any exercise bothers you, stop right away. Always warm up before stretching. Heated muscles stretch much easier than cool muscles. Stretching cool muscles can lead to injury. Try walking and swinging your arms at an easy pace for a few minutes to warm up your muscles. Do this again after exercising. Never bounce when doing stretches. Doing exercises before a meal may be a good way to get into a routine. Exercise may be slightly uncomfortable, but you should not have sharp pains. If you do get sharp pains, stop what you are doing. If the sharp pains continue, call your doctor. Where can I learn more? [employer] https://orthoinfo.aaos.org/en/recovery/prrlei-cokzyx-ywuvrkyz-therapeutic- exercise-program/ Last Reviewed Date 2018-11-07 Consumer Information Use and Disclaimer This information is not specific medical advice and does not replace information you receive from your health care provider. This is only a brief summary of general information. It does NOT include allinformation about conditions, illnesses, injuries, tests, procedures, treatments, therapies, discharge instructions or life-style choices that may apply to you. You must talk with your health care provider for complete information about your health and treatment options. This information should not beused to decide whether or not to accept your health care provider?s advice, instructions or recommendations. Only your health care provider has the knowledge and training to provide advice that is right for you. Copyright Copyright 2019 [employer] and its affiliates and/or licensors. All rights reserved. documented in this encounter Progress Notes Shannan Eden NP - 03/22/2019 2:20 PM EST PATIENT: Yudith Ta : 1970 DATE OF SERVICE: 03/22/2019 CHIEF COMPLAINT: Chief Complaint Patient presents with ? Check Up r wrist pain 7-10 days, tingling in fingers and pain shooting to elbow Subjective HISTORY OF PRESENT ILLNESS: Yudith Ta is a 49-y.o. female. HPI Injured right wrist at gym a week ago, now doing ACLS training for the last couple of days which is aggravating (CPR etc). Now having increased pain, tingling in hand, pain radiating up to her elbow and into hand, pain on dorsal aspect of wrist, no swelling, redness, no fever chills malaise. . Using tylenol because not wanting to use nsaids more than 2-3 days. Does not have a brace. Past Medical History: Diagnosis Date ? Back [...] history Current Outpatient Medications Medication Sig ? bisoprolol (ZEBETA) 5 MG Oral Tab [...] FOUR TIMES DAILY NEEDED (wrist pain). ? ketoconazole (NIZORAL) 2 % Apply externally [...] this visit. Allergies Allergen Reactions ? 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 Marital [...] file Gets together: Not on file Attends church service: Not on file Active member of [...] Asked Social History Narrative Work at [employer] at [employer] REVIEW OF SYSTEMS: Review of Systems Musculoskeletal: Positive for joint pain (see hpi). Negative for back pain and neck pain. Skin: Negative for itching and rash. Neurological: Positive for tingling and sensory change. Negative for weakness. Objective PHYSICAL EXAM: VITALS: BP 124/82 (BP Location: Left arm, Patient Position: Sitting) | Pulse 82 | Temp 98.1 F(36.7 C) (Tympanic) | Ht 5' 2" (1.575 m) | Wt 250 lb (113.4 kg) | SpO2 99% | BMI 45.73 kg/m Body mass index is 45.73 kg/m. Physical Exam Vitals signs and nursing note reviewed. Constitutional: General: She is not in acute distress. Musculoskeletal: Right shoulder: Normal. Right elbow: Normal. Right wrist: She exhibits decreased range of motion (d/t pain) and tenderness. She exhibits no bony tenderness, no swelling, no effusion, no crepitus, no deformity and no laceration. Arms: Right hand: She exhibits normal range of motion, no tenderness, no bony tenderness, normal capillary refill, no deformity, no laceration and no swelling. Normal sensation noted. Normal strength noted. Skin: General: Skin is warm and dry. Capillary Refill: Capillary refill takes less than 2 seconds. Neurological: General: No focal deficit present. Mental Status: She is alert. Psychiatric: Mood and Affect: Mood normal. Behavior: Behavior normal. Behavior is cooperative. Thought Content: Thought content normal. Judgment: Judgment normal. ASSESSMENT / IMPRESSION: ICD-9-CM ICD-10-CM 1. Right wrist tendonitis 727.05 M77.8 diclofenac (VOLTAREN) 1 % Transdermal Gel Plan 1. Right wrist tendonitis Night time brace, wilner wrap during the day for comfort Heat to area Diclofenac cream tid prn Avoid aggravating activities - thankfully ACLS is completed so no more practice CPR. Call or return if symptoms worsen or fail to improve. - diclofenac (VOLTAREN) 1 % Transdermal Gel; 4 g by Topical route FOUR TIMES DAILY NEEDED (wrist pain). Dispense: 100 g; Refill: 3 Author: Shannan Eden NP 03/22/2019 15:33 documented in this encounter Plan of Treatment Health Maintenance Due Date Last Done Comments [...] mo Lifestyle 5 (03/22/2019 2:13 PM EST) Wilfredo Dailey MD max (lbs) >= 10 Note: This [...] filedocumented in this encounter Visit Diagnoses Diagnosis Right wrist tendonitis documented in this encounter Insurance Payer Benefit Plan / Subscriber ID Effective Phone Address Type Group Dates KAROLYN MUNOZ [id number] 2015-Rickey [employer] P[employer] nt [employer] BLUE Guarantor Name Account Type Relation to Date of Phone Billing Address Patient Yudith Ta Personal/Famil 1970 [address] [place], [place] (Work) [id number] documented as of this encounter Advance Directives Type Date Recorded 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
[2019-04-23 20:17] LABS: ABS Basophils 0.1 10^3/ul (0-0.2); ABS Eosinophils 0.5 10^3/ul (0-0.6); ABS Lymphocytes 1.5 10^3/ul (1.0-4.8); ABS Monocytes 0.7 10^3/ul (0-0.8); ABS Neutrophils 5.3 10^3/ul (1.5-7.7); Eosinophil % 6.6 %; Hematocrit 37 % (35-47); Hemoglobin 12.7 g/dL (12.0-16.0); Lymphocyte % 18.8 %; Mean Corpuscular HGB Conc 34 g/dL (31-36); Mean Corpuscular Hemoglobin 29 pg (27-31); Mean Corpuscular Volume 85 fL (80-97); Mean Platelet Volume 7.7 fL (7.4-10.4); Nucleated Red Blood Cells % 0.1; Platelet Count 306 10^3/uL (150-450); Red Blood Count 4.39 10^6 /uL (3.70-4.87); Red Cell Distribution Width 13 % (10-15); White Blood Count 8.2 10^3/uL (3.5-10.8)
[2019-04-23 20:21] LABS: INR 1.03 (0.82-1.09)
[2019-04-23 20:30] LABS: Influenza A Molecular Negative (Negative); Influenza B Molecular Negative (Negative)
[2019-04-23] MEDS ORDERED: Albuterol/Ipratropium NEB.SOL* Albuterol 2.5 MG/Ipratropium 0.5 MG 3 ML INH ONE ×2 (20:39→22:04)
[2019-04-23 20:41] LABS: Albumin 3.9 g/dL (3.2-5.2); Albumin/Globulin Ratio 1.4 (1-3); BUN/Creatinine Ratio 16.7 (8-20); Calcium 9.1 mg/dL (8.6-10.3); EGFR African American 94.2 (>60); EGFR Non-African American 77.9 (>60); Globulin 2.8 g/dL (2-4); Potassium 3.7 mmol/L (3.5-5.0); Total Bilirubin 0.3 mg/dL (0.2-1.0); Total Protein 6.7 g/dL (6.4-8.9)
--- NOTE | 2019-04-23 20:48 | ED ---
Complex/Multi-Sys Presentation - HPI Summary HPI Summary: Patient is a 49 y/o F presenting to [facility] with complaints of SOB, chest tightness, cough, low-grade fever, congestion, and rhinorrhea. She states that on 04/12/19, she developed rhinorrhea and congestion. A week later, she developed a cough and low grade fever. 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 She was prescribed doxycycline. Patient states that she started feeling slightly improved initially but then worsened. Patient now has complaints of chest tightness and SOB. She states that she feels more ill overall and could not wait until morning to be evaluated. Vomiting and diarrhea are denied. PMHx of HTN, HLD, hypothyroidism reported. Reglan allergy is claimed. PSHx of cholecystectomy, knee surgery reported. Occasional alcohol usage is noted. FMHx of HTN, CA is stated. Home medications and allergies are reviewed. - History Of Current Complaint Chief Complaint: EDShortnessOfBreath Time Seen by Provider: 04/23/19 19:46 Hx Obtained From: Patient Onset/Duration: Lasting Days Timing: Days Location: Pain At: - chest Associated Signs And Symptoms: Positive: SOB, Cough, Chest Pain, Fever, Other - positive - rhinorrhea, congestion, wheezing. Negative: Vomiting, Diarrhea - Allergies/Home Medications Allergies/Adverse Reactions: Allergies Allergy/AdvReac Type Severity Reaction Status Date / Time metoclopramide [From Reglan] Allergy See Comment Verified 04/23/19 20:01 Home Medications: Home Medications Bisoprolol TAB* [Zebeta TAB*] 5 mg PO DAILY 10/22/16 [History Confirmed 03/22/18 ] Levothyroxine TAB* [Synthroid 150 MCG TAB*] 150 mcg PO 0800 10/22/16 [History Confirmed 03/22/18] Clobetasol Propionate 1 applic TOPICAL BID PRN 03/22/18 [History Confirmed 03/22] Famotidine TAB* [Pepcid 20 MG TAB*] 20 mg PO BID #10 tab 03/22/18 [Rx] Hyoscyamine Sulfate [Levsin] 0.125 mg PO Q4H PRN #30 tablet 03/22/18 [Rx] Metoclopramide TAB* [Reglan TAB*] 10 mg PO Q6H #40 tab 03/22/18 [Rx] Omeprazole 40 mg PO DAILY 03/22/18 [History Confirmed 03/22/18] Ondansetron [Ondansetron Odt] 8 mg SL Q8H PRN 03/22/18 [History Confirmed ] Rosuvastatin Calcium [Crestor] 20 mg PO DAILY 03/22/18 [History Confirmed ] Spironolactone 0.5 - 1 tab PO DAILY 03/22/18 [History Confirmed 03/22/18] Sucralfate TAB* [Carafate*] 1 gm PO ACHS #60 tab 03/22/18 [Rx] Theragran/minerals TAB* 1 tab PO DAILY 03/22/18 [History Confirmed 03/22/18] Topiramate TAB(*) [Topamax 25 MG tab] 1 tab PO BEDTIME 03/22/18 [History Confirmed 03/22/18] Azithromyxin INOCENCIO (NF) [Z-Inocencio (Zithromax) 250 mg tabs #6] 2 tab PO .TODAY, THEN 1 DAILY #6 tab 04/23/19 [Rx] Cefuroxime 500 MG TAB (NF) [Ceftin 500 MG TAB (NF)] 500 mg PO BID #1 tab [Rx] predniSONE 20 mg TAB [Deltasone 20 MG TAB*] 40 mg PO DAILY #10 tab 04/23/19 [Rx] PMH/Surg Hx/FS Hx/Imm Hx Endocrine/Hematology History: Reports: Hx Thyroid Disease - hypothyroid Denies: Hx Diabetes Cardiovascular History: Reports: Hx Hypercholesterolemia, Hx Hypertension - ON MEDS Respiratory History: Reports: Other Respiratory Problems/Disorders - HX RSV GI History: Reports: Hx Gastroesophageal Reflux Disease, Other GI Disorders - "cyclic vomiting" Sensory History: Reports: Hx Contacts or Glasses Denies: Hx Hearing Aid Opthamlomology History: Reports: Hx Contacts or Glasses Neurological History: Reports: Hx Headaches, Hx Migraine - Cancer History Hx Hematologic Symptoms: No Hx Chemotherapy: No Hx Radiation Therapy: No Hx Palliative Cancer Treatment: No - Surgical History Surgery Procedure, Year, and Place: Cholecystectomy. C section. knee arthroscopy Hx Anesthesia Reactions: No - Immunization History Date of Tetanus Vaccine: utd Date of Influenza Vaccine: fall 2018 Infectious Disease History: No Infectious Disease History: Denies: Traveled Outside the [place] in Last 30 Days - Family History Known Family History: Positive: Hypertension, Other - CVA, thrombocytopenia, myasthenia gravis, CA - Social History Alcohol Use: Occasionally Alcohol Amount: socially Hx Substance Use: No Substance Use Type: Reports: None Hx Tobacco Use: No Smoking Status (MU): Never Smoked Tobacco - Additional Comments History Additional Comments: PMHx of HTN, HLD, hypothyroidism PSHx of cholecystectomy, knee surgery Occasional alcohol usage FMHx of HTN, CA Review of Systems - ROS Summary Review of Systems Summary: Home Medications Medication Instructions Recorded Confirmed Type Bisoprolol TAB* [Zebeta TAB*] 5 mg PO DAILY 10/22/16 03/22/18 History Levothyroxine TAB* [Synthroid 150 150 mcg PO 0800 10/22/16 03/22/18 History MCG TAB*] Clobetasol Propionate 1 applic TOPICAL BID PRN 03/22/18 03/22/18 History Famotidine TAB* [Pepcid 20 MG TAB*] 20 mg PO BID #10 tab 03/22/18 Rx Hyoscyamine Sulfate [Levsin] 0.125 mg PO Q4H PRN #30 tablet 03/22/18 Rx Metoclopramide TAB* [Reglan TAB*] 10 mg PO Q6H #40 tab 03/22/18 Rx Omeprazole 40 mg PO DAILY 03/22/18 03/22/18 History Ondansetron [Ondansetron Odt] 8 mg SL Q8H PRN 03/22/18 03/22/18 History Rosuvastatin Calcium [Crestor] 20 mg PO DAILY 03/22/18 03/22/18 History Spironolactone 0.5 - 1 tab PO DAILY 03/22/18 03/22/18 History Sucralfate TAB* [Carafate*] 1 gm PO ACHS #60 tab 03/22/18 Rx Theragran/minerals TAB* 1 tab PO DAILY 03/22/18 03/22/18 History Topiramate TAB(*) [Topamax 25 MG 1 tab PO BEDTIME 03/22/18 03/22/18 History tab] Positive: Fever - low grade Positive: Nasal Discharge, Other - Congestion Positive: Chest Pain Positive: Shortness Of Breath, Cough, Other - Wheezing All Other Systems Reviewed And Are Negative: Yes Physical Exam - Summary Physical Exam Summary: General: Well-developed, Morbidly obese female, Mildly-ill appearing. No acute distress. HEENT: Normocephalic, Atraumatic. Eyes: Conjuctiva normal, PERRL. Oropharynx: Clear, mucous membranes moist, (-) exudates. Neck: Soft, FROM, (-) lymphadenopathy, (-) thyromegaly, (-) JVD. Cardiovascular: Normal sinus rhythm, (-) murmur. Lungs: Decreased breath sounds bilaterally, mild tight wheezing throughout (-) rales, (-) rhonchi. Abdomen: Soft, non-tender, non-distended, (-) organomegaly, normal bowel sounds. Back: (-) CVA tenderness Extremities: No edema. Skin: Warm, dry, (-) rash. Neuro: Alert and oriented x3, moves all extremities equally. No ataxia. No gait disturbance. No sensory deficit. Normal strength, normal sensation. Psychiatric: Mood normal, affect normal. Triage Information Reviewed: Yes Vital Signs On Initial Exam: Initial Vitals Temp Pulse Resp BP Pulse Ox 98.7 F 88 16 126/94 99 04/23/19 19:14 04/23/19 19:14 04/23/19 19:14 04/23/19 19:14 04/23/19 19:14 Vital Signs Reviewed: Yes Procedures - Sedation Patient Received Moderate/Deep Sedation with Procedure: No Diagnostics - Vital Signs Vital Signs Temp Pulse Resp BP Pulse Ox 04/23/19 19:14 98.7 F 88 16 126/94 99 - Laboratory Lab Results: Lab Results 04/23/19 04/23/19 04/23/19 Range/Units 19:34 20:00 20:00 WBC 8.2 (3.5-10.8) 10^3/uL RBC 4.39 (3.70-4.87) 10^6 /uL Hgb 12.7 (12.0-16.0) g/dL Hct 37 (35-47) % MCV 85 (80-97) fL MCH 29 (27-31) pg MCHC 34 (31-36) g/dL RDW 13 (10-15) % Plt Count 306 (150-450) 10^3/uL MPV 7.7 (7.4-10.4) fL Neut % (Auto) 64.6 % Lymph % (Auto) 18.8 % [place] % (Auto) 8.7 % Eos % (Auto) 6.6 % Baso % (Auto) 1.3 % Absolute Neuts (auto) 5.3 (1.5-7.7) 10^3/ul Absolute Lymphs (auto) 1.5 (1.0-4.8) 10^3/ul Absolute Monos (auto) 0.7 (0-0.8) 10^3/ul Absolute Eos (auto) 0.5 (0-0.6) 10^3/ul Absolute Basos (auto) 0.1 (0-0.2) 10^3/ul Absolute Nucleated RBC 0.0 10^3/ul Nucleated RBC % 0.1 INR (Anticoag Therapy) (0.82-1.09) Sodium 139 (135-145) mmol/L Potassium 3.7 (3.5-5.0) mmol/L Chloride 107 (101-111) mmol/L Carbon Dioxide 24 (22-32) mmol/L Anion Gap 8 (2-11) mmol/L BUN 13 (6-24) mg/dL Creatinine 0.78 (0.51-0.95) mg/dL Est GFR ( Amer) 94.2 (>60) Est GFR (Non-Af Amer) 77.9 (>60) BUN/Creatinine Ratio 16.7 (8-20) Glucose 104 H (70-100) mg/dL Lactic Acid 1.0 (0.5-2.0) mmol/L Calcium 9.1 (8.6-10.3) mg/dL Total Bilirubin 0.30 (0.2-1.0) mg/dL AST 15 (13-39) U/L ALT 14 (7-52) U/L Alkaline Phosphatase 69 (34-104) U/L Troponin I Pending Total Protein 6.7 (6.4-8.9) g/dL Albumin 3.9 (3.2-5.2) g/dL Globulin 2.8 (2-4) g/dL Albumin/Globulin Ratio 1.4 (1-3) Influenza A (Rapid) (Negative) Influenza B (Rapid) (Negative) 04/23/19 04/23/19 Range/Units 20:00 20:00 WBC (3.5-10.8) 10^3/uL RBC (3.70-4.87) 10^6 /uL Hgb (12.0-16.0) g/dL Hct (35-47) % MCV (80-97) fL MCH (27-31) pg MCHC (31-36) g/dL RDW (10-15) % Plt Count (150-450) 10^3/uL MPV (7.4-10.4) fL Neut % (Auto) % Lymph % (Auto) % [place] % (Auto) % Eos % (Auto) % Baso % (Auto) % Absolute Neuts (auto) (1.5-7.7) 10^3/ul Absolute Lymphs (auto) (1.0-4.8) 10^3/ul Absolute Monos (auto) (0-0.8) 10^3/ul Absolute Eos (auto) (0-0.6) 10^3/ul Absolute Basos (auto) (0-0.2) 10^3/ul Absolute Nucleated RBC 10^3/ul Nucleated RBC % INR (Anticoag Therapy) 1.03 (0.82-1.09) Sodium (135-145) mmol/L Potassium (3.5-5.0) mmol/L Chloride (101-111) mmol/L Carbon Dioxide (22-32) mmol/L Anion Gap (2-11) mmol/L BUN (6-24) mg/dL Creatinine (0.51-0.95) mg/dL Est GFR ( Amer) (>60) Est GFR (Non-Af Amer) (>60) BUN/Creatinine Ratio (8-20) Glucose (70-100) mg/dL Lactic Acid (0.5-2.0) mmol/L Calcium (8.6-10.3) mg/dL Total Bilirubin (0.2-1.0) mg/dL AST (13-39) U/L ALT (7-52) U/L Alkaline Phosphatase (34-104) U/L Troponin I Total Protein (6.4-8.9) g/dL Albumin (3.2-5.2) g/dL Globulin (2-4) g/dL Albumin/Globulin Ratio (1-3) Influenza A (Rapid) Negative (Negative) Influenza B (Rapid) Negative (Negative) Result Diagrams: 04/23/19 19:34 04/23/19 20:00 Lab Statement: Any lab studies that have been ordered have been reviewed, and results considered in the medical decision making process. - Radiology CXR Radiology Interpretation Completed By: ED Physician Summary of Radiographic Findings: CXR showed no pleural effusion, no obvious infiltrate, pending official report. Complex Multi-Symp Course/Dx Course Of Treatment: 49-year-old female presents from home with chest pain or shortness of breath. She states that she has been sick with fever cough runny nose. 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 Diagnosed with pneumonia and started on doxycycline. Patient states she was started to feel better until tonight. When she started having worsening of her wheezing and shortness of breath. Chest tightness. On physical exam she is mildly short of breath at rest. Tight wheezing throughout. Afebrile. She is treated with breathing treatments and steroids. Her chest x-ray is negative. Flu is negative. Antibiotic was switched to Ceftin and Z-Inocencio. Started on prednisone burst. Follow up with PCP. Follow sooner for any worsening symptoms. During ED course , patient received duoneb, Solu-Medrol 125 mg IV, and Ceftin 500 mg PO. - Diagnoses Provider Diagnoses: Bronchitis with bronchospasm Discharge ED - Sign-Out/Discharge Documenting (check all that apply): Patient Departure - DISCHARGE - Discharge Plan Condition: Stable Disposition: HOME Prescriptions: Azithromyxin INOCENCIO (NF) [Z-Inocencio (Zithromax) 250 mg tabs #6] 2 tab PO .TODAY, THEN 1 DAILY #6 tab Cefuroxime 500 MG TAB (NF) [Ceftin 500 MG TAB (NF)] 500 mg PO BID #1 tab predniSONE 20 mg TAB [Deltasone 20 MG TAB*] 40 mg PO DAILY #10 tab Patient Education Materials: Acute Bronchitis (ED), Bronchospasm (ED) Referrals: Elodia Maria MD [Primary Care Provider] - 3 Days Additional Instructions: PLEASE RETURN TO ED FOR ANY NEW OR WORSENING SYMPTOMS. PLEASE FOLLOW-UP WITH YOUR PRIMARY CARE PHYSICIAN WITHIN THREE DAYS. - Billing Disposition and Condition Condition: STABLE Disposition: Home - Attestation Statements Document Initiated by Scribe: Yes Documenting Scribe: SAHSA FERNANDEZ Provider For Whom Scribe is Documenting (Include Credential): TYRONE JHA MD Scribe Attestation: SASHA Meeks, scribed for TYRONE JHA MD on 04/24/19 at 0654. Scribe Documentation Reviewed: Yes Provider Attestation: The documentation as recorded by the scribeSASHA accurately reflects the service I personally performed and the decisions made by me, TYRONE JHA MD Status of Scribe Document: Viewed
[2019-04-23] MEDS ORDERED: methylPREDNISolone 125 MG* 2 ML VIAL IV ONE (21:56)
[2019-04-23] MEDS ORDERED: ceFUROXime 500 mg TAB(NF) 500 MG TAB PO ONE (22:16)
[2019-04-23 23:00] VITALS: BP 155/89
== END 2019-04-23 22:56 | disposition home or self-care (01) ==
LOC: ED 18:46
DX: J20.9 Acute bronchitis, unspecified (principal); E03.9 Hypothyroidism, unspecified; I10 Essential (primary) hypertension; E78.5 Hyperlipidemia, unspecified; K21.9 Gastro-esophageal reflux disease without esophagitis; Z90.49 Acquired absence of other specified parts of digestive tract; Z79.890 Hormone replacement therapy; Z79.899 Other long term (current) drug therapy; Z88.8 Allergy status to other drugs, medicaments and biological substances
CPT/HCPCS: 36415; 71046; 80053; 83605; 83880; 84484; 85025; 85610; 96374; 99283; A9270-GY; J2930